=== PATIENT | male | born 1970 | race Caucasian/White ===

== ENCOUNTER 2022-07-26 15:07 | Inpatient (IN) | payer OTHER ==
[~2022-07-26] VITALS: Ht 182.9 cm; Wt 136.5 kg
--- NOTE | 2022-07-26 16:29 | NUR ---
DR BECKETT AT BEDSIDE FOR EVAL.
[2022-07-26] MEDS ORDERED: CEFEPIME 1 GM in IV D5W 50 ML IV ONE (16:30)
[2022-07-26] MEDS ORDERED: VANCOMYCIN 1 GM in IV D5W 250 ML IV ONE (16:30)
--- NOTE | 2022-07-26 16:30 | NUR ---
BIB "BEST FRIEND" FROM [facility]. C/O LEFT FOOT PAIN X 1 WEEK, Wound noted all over the both legs, moist with foul smell coming out from the wound.
--- NOTE | 2022-07-26 16:50 | NUR ---
IV LINE STARTED BLOOD/BLOOD CULTURE DRAWN AND SENT TO LAB.
[2022-07-26 17:15] LABS: BASOPHILS # (AUTO) 0.1 K/uL (0.0-0.2); BASOPHILS % (AUTO) 0.7 % (0.0-2.0); EOSINOPHILS % (AUTO) 1.2 % (0.0-6.0); HEMATOCRIT 37 % (39-51); HEMOGLOBIN 11.3 g/dL (13.5-17.5); LYMPHOCYTES # (AUTO) 2.1 K/uL (0.8-4.8); LYMPHOCYTES % (AUTO) 10.8 % (20.0-44.0); MEAN CORPUSCULAR HGB CONC 31 g/dl (31.0-36.0); MEAN CORPUSCULAR VOLUME 84 fL (80-96); MONOCYTES # (AUTO) 1.6 K/uL (0.1-1.30); NEUTROPHILS # (AUTO) 15.5 K/uL (1.8-8.9); NEUTROPHILS % (AUTO) 79.3 % (43.0-81.0); PLATELET COUNT (AUTO) 417 K/uL (150-450); RED BLOOD CELL COUNT(AUTO) 4.35 MIL/uL (4.5-6.0); WHITE BLOOD COUNT (AUTO) 19.6 K/uL (4.3-11.0)
--- NOTE | 2022-07-26 17:47 | NUR ---
[facility] . THEY FAXED PERTINENT PAPER WORK FOR THE PT. PLACED ON PT CHART.
[2022-07-26 18:16] LABS: CALCIUM, SERUM 8.6 mg/dL (8.5-10.1); CARBON DIOXIDE 30 mmol/L (21-32); CHLORIDE 102 mmol/L (98-107); CREATININE 1.6 mg/dL (0.6-1.3); GLUCOSE 125 mg/dL (74-106); POTASSIUM 4.4 mmol/L (3.5-5.1); SODIUM SERUM 137 mmol/L (136-145); UREA NITROGEN, BLOOD 32 mg/dL (7-18)
--- NOTE | 2022-07-26 18:19 | NUR ---
COVID SWAB COLLECTED AND SENT TO LAB.
[2022-07-26 18:26] LABS: ALANINE AMINOTRANSFERASE 24 U/L (12-78); ALBUMIN 1.8 g/dL (3.4-5.0); ALKALINE PHOSPHATASE 165 U/L (46-116); ASPARTATE AMINOTRANSFERASE 26 U/L (15-37); BILIRUBIN,DIRECT 0.3 mg/dL (0.0-0.2); BILIRUBIN,TOTAL 0.4 mg/dL (0.2-1.0); TOTAL PROTEIN, SERUM 7.3 g/dL (6.4-8.2)
[2022-07-26] MEDS ORDERED: HYDROCODONE/APAP 5/325MG TABLET ONE (18:43)
[2022-07-26] MEDS ORDERED: INSU100V7 SQ (18:59)
[2022-07-26] MEDS ORDERED: BENA10TA74 PO (18:59)
[2022-07-26] MEDS ORDERED: SENN-261 PO (18:59)
[2022-07-26] MEDS ORDERED: METF-440 PO (18:59)
[2022-07-26] MEDS ORDERED: INSU100V36 SQ (18:59)
[2022-07-26] MEDS ORDERED: ATOR40TA PO (18:59)
[2022-07-26] MEDS ORDERED: DIVA-78 PO (18:59)
[2022-07-26] MEDS ORDERED: GABA-532 PO (18:59)
[2022-07-26] MEDS ORDERED: DULO30CA52 PO (18:59)
[2022-07-26] MEDS ORDERED: POLY17PO4 PO (18:59)
[2022-07-26] MEDS ORDERED: BISA5TAB10 PO (18:59)
[2022-07-26] MEDS ORDERED: DIVA-76 PO (18:59)
[2022-07-26] MEDS ORDERED: QUET25TA PO (18:59)
[2022-07-26] MEDS ORDERED: ACET-2605 PO (18:59)
[2022-07-26] MEDS ORDERED: LACO100T2 PO (18:59)
[2022-07-26] MEDS ORDERED: ALBU8.5H8 IH (18:59)
[2022-07-26] MEDS ORDERED: HYDROCODONE/APAP 5/325MG TABLET PO ONE (19:00)
--- NOTE | 2022-07-26 19:20 | NUR ---
Pt refused for oxygen via nasal cannula. Oxygen sat: 87-91%
--- NOTE | 2022-07-26 20:02 | NUR ---
URINE SPECIMEN SENT TO LAB
--- NOTE | 2022-07-26 20:14 | NUR ---
PATIENT IS AAOX4. ABLE TO MAKE NEEDS KNOWN. RECIEVED WITH IV MONIE G20 ON RIGHT AC. PATIENT WITH IFC ATTACHED TO UROBAG. WITH BILATERAL INFECTED LOWER LEG. PATIENT IS A BIT PALE AND SATS WITHIN 87-91%. ABLE TO CONVINCE PATIENT THAT WE WILL DO NASAL CANNULA AT 2LPM TO HELP HIM WITH HIS OXYGEN LEVEL NEEDED ONLY. PATIENT AGREED.
--- NOTE | 2022-07-26 20:26 | NUR ---
REPORT GIVEN TO SANDIE HERNANDEZ
--- NOTE | 2022-07-26 20:30 | NUR ---
PATIENT BEING TRANSFERRED TO [facility]
[2022-07-26 20:38] LABS: BILIRUBIN,URINE NEGATIVE (NEGATIVE); COLOR,URINE YELLOW (YELLOW); LEUKOCYTE ESTERASE ,URINE 3+ (NEGATIVE); NITRITE, URINE POSITIVE (NEGATIVE); PROTEIN,URINE 2+ mg/dl (NEGATIVE); UGLUCOSE NEGATIVE (NEGATIVE); UROBILINOGEN,URINE 0.2 EU/dL (0.2)
--- NOTE | 2022-07-26 20:50 | NUR ---
ADMISSION NOTE Patient arrived via gurney accompanied by EMT @2039. AOx4, able to make needs known. On NC 3LPM and tolerating well. Patient is refusing nasal cannula because "90% is my normal." Asked patient why he does not want oxygen and he said "it is uncomfortable." Provided patient with further education but he still refused. No SOB while resting but patient is unable to tolerate laying flat for long periods of time. No s/sx of respiratory distress noted. IV access in RAC #18G. IV is intact, patent, and flushing well. Wound pictures taken and basic wound care done. Safety precautions in place: bed in lowest, locked position, siderails upX2, and brake on. Table and call light within reach. All needs met at this time.
[2022-07-26 21:00] VITALS: BP 104/58
[2022-07-26] MEDS ORDERED: ZOLPIDEM TARTRATE 5 MG TABLET PO PRN (21:00)
[2022-07-26] MEDS ORDERED: ACETAMINOPHEN 325 MG TABLET PO PRN (21:00)
[2022-07-26] MEDS ORDERED: ONDANSETRON HCL/PF 4 MG/2 ML VIAL IVP PRN (21:00)
[2022-07-26] MEDS ORDERED: Z GUARD REMEDY 4 OZ OINT TP PRN (21:00)
[2022-07-26] MEDS ORDERED: MAG HYDROX/AL HYDROX/SIMETH 30 ML UDC PO PRN (21:00)
[2022-07-26] MEDS ORDERED: MAGNESIUM HYDROXIDE 30 ML UDC PO PRN (21:00)
[2022-07-26] MEDS ORDERED: HYDROCODONE/APAP 10/325MG TABLET PO PRN (21:00)
[2022-07-26] MEDS ORDERED: DEXTROSE 50%-WATER 50 ML DISP.SYRIN IV PRN (21:00)
[2022-07-26 21:07] LABS: BACTERIA,URINE 3+ /HPF (None Seen); RBC,URINE 21-50 /HPF (0-2); WBC,URINE 51-80 /HPF (0-3)
[2022-07-26 21:08] LABS: SQUAMOUS EPITHELIAL CELL,UR 0-2 /HPF (None Seen); URIC ACID CRYSTALS,URINE Few /HPF (None Seen)
[2022-07-26] MEDS ORDERED: VANCOMYCIN 1 GM in IV D5W 250ml IV ONE (21:30)
[2022-07-26] MEDS ORDERED: VANCOMYCIN 1 GM VIAL ONE (21:58)
[2022-07-26] MEDS: BLOOD SUGAR DIAGNOSTIC 1 EACH STRIP VI SCH (22:33)
[2022-07-26] MEDS: *INSULIN REGULAR(HUMULIN R)HUM 100 UNIT/ML VIAL SQ PRN (22:34)
[2022-07-27] MEDS ORDERED: BISACODYL (5 MG) 5 MG TABLET.DR PO PRN (03:00)
[2022-07-27] MEDS ORDERED: ACETAMINOPHEN ES 500 MG TABLET PO PRN (03:00)
[2022-07-27] MEDS ORDERED: ALBUTEROL SULFATE 8 GM HFA.AER.AD IH PRN (03:00)
[2022-07-27] MEDS ORDERED: ALBUTEROL FS 2.5 MG/3 ML VIAL.NEB NEB PRN (03:30)
[2022-07-27] MEDS ORDERED: CEFEPIME 1 GM VIAL ONE (04:29)
[2022-07-27] MEDS: CEFEPIME 2 GM in IV D5W 100 ML IV SCH ×3 (04:42→20:14)
[2022-07-27 05:44] LABS: BASOPHILS # (AUTO) 0.1 K/uL (0.0-0.2); BASOPHILS % (AUTO) 0.4 % (0.0-2.0); EOSINOPHILS % (AUTO) 1.5 % (0.0-6.0); HEMATOCRIT 36 % (39-51); HEMOGLOBIN 11.1 g/dL (13.5-17.5); LYMPHOCYTES # (AUTO) 1.8 K/uL (0.8-4.8); LYMPHOCYTES % (AUTO) 9.7 % (20.0-44.0); MEAN CORPUSCULAR HGB CONC 31 g/dl (31.0-36.0); MEAN CORPUSCULAR VOLUME 84 fL (80-96); MONOCYTES # (AUTO) 1.5 K/uL (0.1-1.30); MONOCYTES % (AUTO) 8.1 % (2.0-12.0); NEUTROPHILS # (AUTO) 15.2 K/uL (1.8-8.9); NEUTROPHILS % (AUTO) 80.3 % (43.0-81.0); PLATELET COUNT (AUTO) 430 K/uL (150-450); RED BLOOD CELL COUNT(AUTO) 4.27 MIL/uL (4.5-6.0)
[2022-07-27 06:00] LABS: CALCIUM, SERUM 8.4 mg/dL (8.5-10.1); CREATININE 1.5 mg/dL (0.6-1.3); MAGNESIUM 1.8 mg/dL (1.8-2.4); PHOSPHORUS 4.2 mg/dL (2.5-4.9); POTASSIUM 4.6 mmol/L (3.5-5.1)
[2022-07-27] MEDS: BLOOD SUGAR DIAGNOSTIC 1 EACH STRIP VI SCH ×4 (06:30→21:30)
[2022-07-27] MEDS: INSULIN REGULAR, HUMAN 100 UNIT/ML 3 ML VIAL SQ PRN (06:31)
--- NOTE | 2022-07-27 06:46 | NUR ---
RN Closing Note Pt in bed, asleep, awakens to verbal stimuli. AOx4, able to make needs known. On NC 3LPM and tolerating well. No SOB while resting but patient is unable to tolerate laying flat for long periods of time. No s/sx of respiratory distress noted. IV access in RAC #18G. IV is intact, patent, and flushing well. Wound pictures taken and basic wound care done. All orders carried out. All needs met. Pt kept clean and dry. Safety precautions in place: bed in lowest, locked position, siderails upX2, and brake on. Table and call light within reach. Will endorse to oncoming shift for CRISTAL.
--- NOTE | 2022-07-27 07:00 | NUR ---
RN OPENING NOTE Pt in bed, awake, AOx4, able to make needs known. On NC 3LPM and tolerating well. No SOB while resting but patient is unable to tolerate laying flat for long periods of time. No s/sx of respiratory distress noted. IV access in RAC #18G. IV is intact, patent, and flushing well. bed in lowest, locked position, side rails upX2, and brake on. Table and call light within reach. Will continue to monitor the patient.
[2022-07-27] MEDS: DULOXETINE HCL 30 MG CAPSULE.DR PO SCH (08:41)
[2022-07-27] MEDS: DIVALPROEX SODIUM 250 MG TABLET.DR PO SCH ×2 (08:41→11:52)
[2022-07-27 08:42] VITALS: BP 114/66
[2022-07-27] MEDS: BENAZEPRIL HCL 10 MG TABLET PO SCH (08:42)
[2022-07-27] MEDS: SENNOSIDES 8.6 MG TABLET PO SCH ×2 (09:29→18:42)
[2022-07-27] MEDS: POLYETHYLENE GLYCOL 3350 17 GM POWD.PACK PO SCH ×2 (09:29→17:00)
[2022-07-27] MEDS: LACOSAMIDE 50 MG TABLET PO SCH ×2 (09:31→21:11)
[2022-07-27] MEDS: QUETIAPINE FUMARATE 25 MG TABLET PO SCH ×2 (09:31→21:10)
[2022-07-27] MEDS: VANCOMYCIN 1 GM in IV D5W 250ml IV SCH ×2 (09:43→21:12)
--- NOTE | 2022-07-27 10:54 | NUR ---
WOUND CARE CONSULT: PT PRESENTS WITH RT BUTTOCK STAGE 3 PRESSURE ULCER WHICH EXTENDS TO RT POSTERIOR THIGH, SACRAL SCARRING WITH INTACT DEEP TISSUE INJURY, WEEPING EDEMA WITH REDNESS TO LOWER LEGS, RT HEEL DRY WOUND AND LEFT LATERAL FOOT NECROTIC WOUND, ALL PRESENT ON ADMISSION. DR RHONDA BOUDREAUX CALLED FOR SURGICAL CONSULT FOR SACRAL AND BUTTOCKS WOUNDS. DR ANGEL CALLED FOR LOWER EXTREMITY WOUNDS. DISCUSSED SKIN PROTECTION AND WOUND CARE WITH NURSING STAFF. [facility] AIR BED ORDERED. IN AGREEMENT WITH PLAN OF CARE. Addendum: 07/27/22 at 1100 by PERRI ARCHIBALD WNDNU Amended: Links added.
--- NOTE | 2022-07-27 11:02 | NUR ---
PATIENT'S SPO2 LEVEL DROPS TO 84, OXYGEN MASK IS IMMEDIATELY APPLIED ON 8L REPLACING NC 3L. SPO2 IMPROVED TO 96. RT HAS SEEN THE PATIENT WELL. CHARGE NURSE AWARE.
[2022-07-27] MEDS: DAKINS QUARTER STRENGTH (0.125%) 480 ML BOTTLE TOP SCH ×4 (12:55→18:32)
[2022-07-27] MEDS: THERAHONEY GEL 1.5 OZ TUBE TP SCH ×3 (12:55→18:32)
--- NOTE | 2022-07-27 12:56 | NUR ---
PATIENT REFUSED CLEANING OF WOUND WELL APPLICATION OF THERAHONEY GEL TO THE WOUND. HIS FRIEND CRISTO ON BEDSIDE AWARE OF THE REFUSAL. RN SUGGESTED TO RETURN AFTER AN HOUR
[2022-07-27 16:00] VITALS: BP 100/60
--- NOTE | 2022-07-27 17:35 | NUR ---
PATIENT FINALLY AGREES ON CLEANING OF SACRAL WOUND WELL APPLICATION OF THERAHONEY GEL
--- NOTE | 2022-07-27 19:15 | NUR ---
RN Closing Note Pt in bed, asleep, awakens to verbal stimuli. AOx4, able to make needs known. On NC 6LPM and tolerating well. No SOB while resting but patient is unable to tolerate laying flat for long periods of time. No s/sx of respiratory distress noted. IV access in RAC #18G. IV is intact, patent, and flushing well. basic wound care done today as indicated. All orders carried out. Patient signed all consent forms needed for his surgery, schedule is yet to be determined from Surgery dept. All needs met. Pt kept clean and dry. Safety precautions in place: bed in lowest, locked position, siderails upX2, and brake on. Table and call light within reach. Will endorse to oncoming mold shifter for RN for CRISTAL.
--- NOTE | 2022-07-27 19:30 | NUR ---
MS RN OPENING NOTES - RECEIVED PATIENT LAYING IN BED AWAKE. A/O X3, ANSWERS "I DON'T KNOW" TO ALL QUESTIONS. SOB NOTED, CURRENTLY ON O2 AT 6LPM VIA NASAL CANULA. HAS RIGHT ANTECUBITAL IV ACCESS #18G WITH NS RUNNING AT 5 ML/HR. NO S/S OF INFILTRATION NOTED. HAS INDWELLING MICHELLE CATHETER DRAINING CLEAR YELLOW URINE TO BAG BY GRAVITY. SAFETY PRECAUTIONS IN PLACE: BED LOCKED AND IN LOW POSITION, SIDE RAILS UP X2, CALL LIGHT WITHIN REACH. WILL CONTINUE PLAN OF CARE.
[2022-07-27 20:00] VITALS: BP 95/58
[2022-07-27] MEDS: ATORVASTATIN 40 MG TABLET PO SCH (21:11)
[2022-07-27] MEDS: GABAPENTIN 100 MG CAPSULE PO SCH (21:11)
[2022-07-27] MEDS: *INSULIN REGULAR(HUMULIN R)HUM 100 UNIT/ML VIAL SQ PRN (21:31)
--- NOTE | 2022-07-27 22:00 | NUR ---
TRANSFERRED PATIENT TO [facility] BED BY 4 PEOPLE.
[2022-07-28] VITALS (41 sets, daily range): BP systolic 87–149; BP diastolic 42–88
--- NOTE | 2022-07-28 00:27 | NUR ---
UNABLE TO RECHECK BP, PATIENT IS REFUSING CARE. SPO2 90% ON 4LPM VIA NASAL CANULA. INCREASED TO 5LPM.
--- NOTE | 2022-07-28 03:54 | NUR ---
PATIENT ALLOWED ME TO TAKE HIS V/S AFTER EXPLAINING THAT I NEED TO GET IT FIRST BEFORE GIVING HIM HIS PAIN MED. PATIENT IS CRYING OFTEN AND VERBALIZED THAT HE IS SORE. GAVE PRN NORCO 10-325 MG, TOLERATED WELL. WILL CONTINUE TO MONITOR.
[2022-07-28] MEDS: CEFEPIME 2 GM in IV D5W 100 ML IV SCH ×3 (04:19→21:06)
[2022-07-28 05:50] LABS: BASOPHILS # (AUTO) 0.1 K/uL (0.0-0.2); BASOPHILS % (AUTO) 0.3 % (0.0-2.0); EOSINOPHILS % (AUTO) 2.4 % (0.0-6.0); HEMATOCRIT 31 % (39-51); HEMOGLOBIN 9.5 g/dL (13.5-17.5); LYMPHOCYTES # (AUTO) 1.9 K/uL (0.8-4.8); LYMPHOCYTES % (AUTO) 9.3 % (20.0-44.0); MEAN CORPUSCULAR HGB CONC 31 g/dl (31.0-36.0); MEAN CORPUSCULAR VOLUME 86 fL (80-96); MONOCYTES # (AUTO) 1.9 K/uL (0.1-1.30); MONOCYTES % (AUTO) 9.5 % (2.0-12.0); NEUTROPHILS # (AUTO) 15.9 K/uL (1.8-8.9); NEUTROPHILS % (AUTO) 78.5 % (43.0-81.0); PLATELET COUNT (AUTO) 368 K/uL (150-450); RED BLOOD CELL COUNT(AUTO) 3.63 MIL/uL (4.5-6.0); WHITE BLOOD COUNT (AUTO) 20.3 K/uL (4.3-11.0)
[2022-07-28 06:01] LABS: CREATININE 1.8 mg/dL (0.6-1.3); MAGNESIUM 1.9 mg/dL (1.8-2.4); PHOSPHORUS 5.4 mg/dL (2.5-4.9); POTASSIUM 4.7 mmol/L (3.5-5.1)
[2022-07-28] MEDS ORDERED: SEVOFLURANE 250 ML BOTTLE IH ONE (06:34)
[2022-07-28] MEDS ORDERED: BUPIVACAINE 0.5 % PF 150 MG/30 ML VIAL ONE (06:35)
[2022-07-28] MEDS ORDERED: LIDOCAINE 1% INJ 50 ML MDV IJ ONE (06:35)
--- NOTE | 2022-07-28 06:37 | NUR ---
TRANSFERRED TO OR IN STABLE CONDITION.
[2022-07-28] MEDS: INSULIN REGULAR, HUMAN 100 UNIT/ML 3 ML VIAL SQ PRN (06:38)
[2022-07-28] MEDS: BLOOD SUGAR DIAGNOSTIC 1 EACH STRIP VI SCH ×4 (06:38→22:48)
--- NOTE | 2022-07-28 06:46 | NUR ---
MS RN CLOSING NOTES - PATIENT TAKEN TO OR. NO SOB OR NOTED, ON O2 AT 5LPM VIA NASAL CANULA. NO S/S OF PAIN OR DISCOMFORT. AFEBRILE. RIGHT ANTECUBITAL IV ACCESS INTACT, PATENT AND FLUSHING. MINIMAL CLEAR YELLOW URINE OUTPUT NOTED. ALL DUE MEDS GIVEN AND NEEDS ATTENDED. SAFETY PRECAUTIONS MAINTAINED. WILL ENDORSE TO NEXT SHIFT FOR CRISTAL.
[2022-07-28] MEDS ORDERED: FENTANYL PF 100MCG/2ML AMPUL ONE (07:10)
[2022-07-28] MEDS ORDERED: CELLULOSE,OXIDIZED 1 EA PACK MC ONE (07:35)
[2022-07-28] MEDS: DIVALPROEX SODIUM 250 MG TABLET.DR PO SCH ×2 (08:00→12:00)
[2022-07-28] MEDS ORDERED: ROCURONIUM BROMIDE 50 MG/5 ML ONE (08:00)
--- NOTE | 2022-07-28 08:18 | NUR ---
RT PATIENT RECEIVED ORALLY INTUBATED FROM SURGERY. PLACED ON [facility] VENT WITH ORDERED SETTINGS PER DR HUBER. ETT SECURED VIA ANCHOR FAST. SX'D AND AIRWAY PATENT. PATIENT SEDATED AND APPEARS COMFORTABLE. AMBU BAG AT HOB Addendum: 07/28/22 at 1649 by KALI CASTELLON RT Amended: Links added.
--- NOTE | 2022-07-28 08:30 | NUR ---
WATER MAIN INSPECTOR PT RECEIVED FROM SURGERY BY BED. PT S/P DEBRIDEMENT. INTUBATED AND NOT ABLE TO WEAN OFF VENT. PT HYPOTENSIVE. NS BOLUS STARTED IN SURGERY INFUSING. PACU AND ANESTHESIA HERE WITH PT FOR RECOVERY PERIOD.
[2022-07-28] MEDS: BENAZEPRIL HCL 10 MG TABLET PO SCH (09:00)
[2022-07-28] MEDS: SENNOSIDES 8.6 MG TABLET PO SCH ×2 (09:00→19:32)
[2022-07-28] MEDS ORDERED: IV NS 0.9% 500 ML BAG IV ONE (09:00)
[2022-07-28] MEDS: LACOSAMIDE 50 MG TABLET PO SCH ×2 (09:00→21:07)
[2022-07-28] MEDS: QUETIAPINE FUMARATE 25 MG TABLET PO SCH ×2 (09:00→21:07)
[2022-07-28] MEDS: IPRATROPIUM NEB FS 0.5 MG/2.5 ML AMPUL.NEB NEB SCH ×5 (09:00→23:02)
[2022-07-28] MEDS: POLYETHYLENE GLYCOL 3350 17 GM POWD.PACK PO SCH ×2 (09:00→19:33)
[2022-07-28] MEDS: DULOXETINE HCL 30 MG CAPSULE.DR PO SCH (09:00)
[2022-07-28] MEDS: NOREPINEPHRINE 8 MG in IV NS 0.9% 242 ML IV PRN ×2 (10:00→10:02)
[2022-07-28 10:32] LABS: ABG OXYGEN SATURATION 89.2 % (92.0-98.5); ABG PCO2 62.2 mmHg (35.0-45.0); ABG PH 7.271 (7.350-7.450); ABG PO2 56.2 mmHg (75.0-100.0); AaDO2 448.9 mmHg; COHb 1.1 % (0.5-1.5); MetHb 0.1 % (0.0-1.5); O2Hb 88.1 % (94.0-97.0); SITE, ABG Left Radial; VENT MODE, BG AC 16 500 80% +5
[2022-07-28] MEDS: DAKINS QUARTER STRENGTH (0.125%) 480 ML BOTTLE TOP SCH ×3 (10:33→16:46)
[2022-07-28] MEDS: VANCOMYCIN 1 GM in IV D5W 250ml IV SCH (10:33)
[2022-07-28] MEDS: PROPOFOL 100 ML IV PRN ×3 (12:10→21:46)
--- NOTE | 2022-07-28 12:26 | NUR ---
rn notes BS-109 MG/DL, PATIENT INTUBATED NO ACUTE RESPIRATORY DISTRESS, ASSIST TURN AND REPOSTION, ELEVATED EFFECTED LEG. WILL FOLLOW UP.
[2022-07-28] MEDS ORDERED: BUMETANIDE INJ 0.25 MG/ML VIAL IV ONE (18:00)
--- NOTE | 2022-07-28 18:30 | NUR ---
rn notes inserted NGT, due medication administered, also patient get inserted picc line DU intact, bs-90mg/dl. pm care done, assist turn and reposition q 2 hr. patient sedated Diprivan 25mcg/kg/min. keep hob elevated. urine output 50ml, flashed with ns. endorsed oncoming nurse abdon.
--- NOTE | 2022-07-28 20:00 | NUR ---
RN NOTE RECEIVED PT ORALLY INTUBATED, CURRENT [facility] VENT SETTINGS [place]. PT APPEARS TO BE COMFORTABLE. PT IS SEDATED, CURRENTLY RECEIVING DIPRIVAN 25MCG/KG/MIN. ON CADEN PICC LINE. VSS. PT NOTED WITH NGT ON L NARE, SECURED, IN PLACED, AND PATENT. FC IN PLACED, PATENT AND SECURED, DRAINING MIN DARK YELLOW URINE. BILATERAL SOFT WRIST RESTRAINTS IN PLACED. HOB ELEVATED. SAFETY PRECAUTIONS IMPLEMENTED. WILL CONT POC.
[2022-07-28] MEDS: ATORVASTATIN 40 MG TABLET PO SCH (21:07)
[2022-07-28] MEDS: GABAPENTIN 100 MG CAPSULE PO SCH (21:11)
[2022-07-28] MEDS: *INSULIN REGULAR(HUMULIN R)HUM 100 UNIT/ML VIAL SQ PRN (22:49)
[2022-07-29] VITALS (62 sets, daily range): BP systolic 96–127; BP diastolic 57–78
[2022-07-29] MEDS: PROPOFOL 100 ML IV PRN ×5 (01:54→22:39)
[2022-07-29] MEDS: IPRATROPIUM NEB FS 0.5 MG/2.5 ML AMPUL.NEB NEB SCH ×6 (03:42→23:14)
--- NOTE | 2022-07-29 03:42 | NUR ---
TITRATE FIO2 TO 80%
[2022-07-29 04:11] LABS: BASOPHILS # (AUTO) 0.1 K/uL (0.0-0.2); BASOPHILS % (AUTO) 0.5 % (0.0-2.0); EOSINOPHILS % (AUTO) 2.2 % (0.0-6.0); HEMATOCRIT 31 % (39-51); HEMOGLOBIN 9.5 g/dL (13.5-17.5); MEAN CORPUSCULAR HGB CONC 31 g/dl (31.0-36.0); MEAN CORPUSCULAR VOLUME 83 fL (80-96); MONOCYTES # (AUTO) 1.5 K/uL (0.1-1.30); MONOCYTES % (AUTO) 8.1 % (2.0-12.0); NEUTROPHILS # (AUTO) 14.5 K/uL (1.8-8.9); NEUTROPHILS % (AUTO) 78.2 % (43.0-81.0); PLATELET COUNT (AUTO) 370 K/uL (150-450); RED BLOOD CELL COUNT(AUTO) 3.66 MIL/uL (4.5-6.0); WHITE BLOOD COUNT (AUTO) 18.5 K/uL (4.3-11.0)
[2022-07-29 04:38] LABS: CREATININE 1.8 mg/dL (0.6-1.3); MAGNESIUM 1.8 mg/dL (1.8-2.4); PHOSPHORUS 4.4 mg/dL (2.5-4.9); POTASSIUM 4.3 mmol/L (3.5-5.1)
[2022-07-29] MEDS: CEFEPIME 2 GM in IV D5W 100 ML IV SCH ×3 (05:03→22:37)
--- NOTE | 2022-07-29 05:45 | NUR ---
Titrate fio2 to 60% . No respiratory distress noted.
[2022-07-29] MEDS ORDERED: VANCOMYCIN 1.5 GM in IV D5W 500 ML IV SCH (06:00)
--- NOTE | 2022-07-29 06:59 | NUR ---
RN NOTE PT REMAINS IN STABLE CONDITION. NO SIGNIFICANT CHANGES NOTED. REMAINS ON DIPRIVAN DRIP 25MCG/KG/MIN, ORALLY INTUBATED, [facility] VENT SETTINGS [place]. NO ACUTE RESP. DISTRESS NOTED. VSS. ALL NEEDS ANTICIPATED. KEPT CLEAN, DRY AND COMFORTABLE AT ALL TIMES. WILL ENDORSE TO AM SHIFT
[2022-07-29] MEDS: BLOOD SUGAR DIAGNOSTIC 1 EACH STRIP VI SCH ×4 (07:28→22:21)
--- NOTE | 2022-07-29 08:00 | NUR ---
rn notes PATIENT SEDATED DIPRIVAN 25 MCG/KG/HR, NO ACUTE RESPIRATORY DISTRESS, TOLERATING SETTING WELL FIO2-60%, 02-97% BEDSIDE MONITOR, PATIENT HR-70 SR. NGT INTACT,AND CLAMPED, PATIENT OBESE, MICHELLE DRAINING MEAGHAN OUTPUT. DRESSING INTACT ON LEFT FOOT , RECHECKED BILATERAL WRIST RESTRAIN FOR CIRCULATION. ASSIST TURN AND REPOSTION Q 2 HR.
--- NOTE | 2022-07-29 08:10 | NUR ---
RN NOTED GET VERBAL ORDER FOR Dr HUBER STOP SEDATION AT THIS TIME WEANING FROM VENT. ORDER TAKEN AND CARRIED OUT.
[2022-07-29 08:59] LABS: ABG BASE EXCESS 3.4 mmol/L; ABG OXYGEN SATURATION 94.4 % (92.0-98.5); ABG PCO2 41.1 mmHg (35.0-45.0); ABG PH 7.447 (7.350-7.450); ABG PO2 72.2 mmHg (75.0-100.0); AaDO2 310.4 mmHg; COHb 0.4 % (0.5-1.5); MetHb 0.2 % (0.0-1.5); O2Hb 93.8 % (94.0-97.0); PEEP,BG 5 cm H2O; SITE, ABG Right Radial; VT, ABG 550 mL
--- NOTE | 2022-07-29 09:00 | NUR ---
RN NOTES ABG DONE VIA RT.
--- NOTE | 2022-07-29 09:15 | NUR ---
RN NOTES PER ABG RESULT GET ORDER VIA Dr HUBER VENT CHANGE INCREASE PEEP 8, AND RESTART SEDATION WHEN PATIENT UNABLE TO TOLERATED SETTINGS. ORDER TAKEN AND CARRIED OUT RT AWARE OF.
[2022-07-29] MEDS: LACOSAMIDE 50 MG TABLET PO SCH ×2 (10:49→21:16)
[2022-07-29] MEDS: DULOXETINE HCL 30 MG CAPSULE.DR PO SCH (10:49)
[2022-07-29] MEDS: POLYETHYLENE GLYCOL 3350 17 GM POWD.PACK PO SCH ×2 (10:49→18:35)
[2022-07-29] MEDS: SENNOSIDES 8.6 MG TABLET PO SCH ×2 (10:49→18:35)
[2022-07-29] MEDS: DAKINS QUARTER STRENGTH (0.125%) 480 ML BOTTLE TOP SCH ×3 (10:50→17:42)
[2022-07-29] MEDS: THERAHONEY GEL 1.5 OZ TUBE TP SCH (10:51)
[2022-07-29] MEDS: BENAZEPRIL HCL 10 MG TABLET PO SCH (11:06)
[2022-07-29] MEDS: QUETIAPINE FUMARATE 25 MG TABLET PO SCH ×2 (11:06→21:16)
[2022-07-29] MEDS: DIVALPROEX SODIUM 125 MG CAP.SPRINK PO SCH ×2 (11:23→18:35)
--- NOTE | 2022-07-29 12:00 | NUR ---
rn notes resumed sedation at this time Diprivan started 10mcg/kg/min, bs-77mg/dl, seen patient via hypertrichologist Dr Maya, and garbage truck dispatcher Dr Michaud, urine output is 500 ml at his time draining via gravity. assist turn and reposition. friend next to the bed. will follow up.
[2022-07-29] MEDS ORDERED: BUMETANIDE INJ 2 MG in IV NS 0.9% 32 ML IV ONE (13:00)
[2022-07-29] MEDS: IV NS 0.9% 250 ML IV PRN (15:30)
--- NOTE | 2022-07-29 18:30 | NUR ---
RN NOTES PM CARE DONEM, SUCTION MOUTH CARE DONE, DUE MEDICATION ADMINISTERED VIA NGT INTACT. PATIENT SEDATED DIPRIVAN 30MCG/KG/MIN. ASSIST TURN AND REPOSTION Q 2 HR.URINE OUTPUT WAS 2200. ENDORSED ONCOMING NURSE CRISTAL.
--- NOTE | 2022-07-29 19:00 | NUR ---
RN NOTE RECEIVED PT ORALLY INTUBATED, CURRENT [facility] VENT SETTINGS [place], AC22 [id number]%. PT APPEARS TO BE COMFORTABLE. PT IS SEDATED, CURRENTLY RECEIVING DIPRIVAN 30MCG/KG/MIN. ON CADEN PICC LINE. VSS. PT NOTED WITH NGT ON L NARE, SECURED, IN PLACED, AND PATENT. FC IN PLACED, PATENT AND SECURED, DRAINING CLEAR YELLOW URINE. BILATERAL SOFT WRIST RESTRAINTS IN PLACED. HOB ELEVATED. SAFETY PRECAUTIONS IMPLEMENTED. WILL CONT POC.
--- NOTE | 2022-07-29 19:55 | NUR ---
UNABLE TO SCAN BREATHING TX DUE TO DAY SHIFT NURSE ACCIDENTALLY DOCUMENTED TX WAS GIVEN. CHARGE NURSE IS AWARE. BREATHING TX GIVEN AT THIS TIME.
[2022-07-29] MEDS: VANCOMYCIN 1.5 GM in IV D5W 500 ML IV SCH (20:16)
[2022-07-29] MEDS: ATORVASTATIN 40 MG TABLET PO SCH (21:16)
[2022-07-29] MEDS: GABAPENTIN 100 MG CAPSULE PO SCH (21:16)
[2022-07-29] MEDS: *INSULIN REGULAR(HUMULIN R)HUM 100 UNIT/ML VIAL SQ PRN (22:22)
[2022-07-30] VITALS (48 sets, daily range): BP systolic 90–146; BP diastolic 57–82
[2022-07-30] MEDS: PROPOFOL 100 ML IV PRN ×2 (02:52→06:30)
[2022-07-30] MEDS: IPRATROPIUM NEB FS 0.5 MG/2.5 ML AMPUL.NEB NEB SCH ×6 (03:33→23:23)
[2022-07-30 03:56] LABS: BASOPHILS # (AUTO) 0.1 K/uL (0.0-0.2); BASOPHILS % (AUTO) 0.7 % (0.0-2.0); HEMATOCRIT 32 % (39-51); MEAN CORPUSCULAR HGB CONC 32 g/dl (31.0-36.0); MEAN CORPUSCULAR VOLUME 83 fL (80-96); MONOCYTES # (AUTO) 1.1 K/uL (0.1-1.30); MONOCYTES % (AUTO) 6.6 % (2.0-12.0); NEUTROPHILS # (AUTO) 12.9 K/uL (1.8-8.9); NEUTROPHILS % (AUTO) 76.7 % (43.0-81.0); PLATELET COUNT (AUTO) 414 K/uL (150-450); RED BLOOD CELL COUNT(AUTO) 3.84 MIL/uL (4.5-6.0); WHITE BLOOD COUNT (AUTO) 16.8 K/uL (4.3-11.0)
[2022-07-30 04:18] LABS: CREATININE 1.6 mg/dL (0.6-1.3); MAGNESIUM 1.7 mg/dL (1.8-2.4); PHOSPHORUS 3.6 mg/dL (2.5-4.9)
[2022-07-30] MEDS: CEFEPIME 2 GM in IV D5W 100 ML IV SCH ×3 (04:31→21:18)
--- NOTE | 2022-07-30 06:41 | NUR ---
RN NOTE PT REMAINS IN STABLE CONDITION. NO SIGNIFICANT CHANGES NOTED. REMAINS ON DIPRIVAN DRIP 30MCG/KG/MIN, ORALLY INTUBATED, ME[facility] VENT SETTINGS [place] AC22,TV550 PEEP8 [id number]%. NO ACUTE RESP. DISTRESS NOTED. VSS. ALL NEEDS ANTICIPATED. KEPT CLEAN, DRY AND COMFORTABLE AT ALL TIMES. TURN AND REPOS. Q2H/PRN. ASPIRATION PRECAUTION/.SAFETY MEASURES IMPLEMENTED. WILL ENDORSE TO AM SHIFT
--- NOTE | 2022-07-30 07:25 | NUR ---
RN note Received patient in bed, GCS E1VTM2. Intubated with size 7.5, marking at 27cm. ON AC PRVC mode, TV 550, FiO2 60% with PEEP 8, SpO2 99%, sedated by propofol at 30mcg/kg/min via right UA PICC. cardiac monitor technician showd SR HR 83/min. MAP>65mmHg. On restraints, bilateral hand circulation is good. Will continue monitoring and care.
[2022-07-30] MEDS: BLOOD SUGAR DIAGNOSTIC 1 EACH STRIP VI SCH ×4 (08:13→22:47)
--- NOTE | 2022-07-30 08:40 | NUR ---
RN Note For sedation vacation, propofol stopped at 08:10. Patient gradually wakes up at 08:35. Informed RT, who switched his ventilator from AC to SIMV mode with PS [id number] at 08:40. For ABG at 0940.
[2022-07-30] MEDS: DIVALPROEX SODIUM 125 MG CAP.SPRINK PO SCH ×2 (08:54→16:22)
[2022-07-30] MEDS: BENAZEPRIL HCL 10 MG TABLET PO SCH (08:54)
[2022-07-30] MEDS: DULOXETINE HCL 30 MG CAPSULE.DR PO SCH (08:55)
[2022-07-30] MEDS: LACOSAMIDE 50 MG TABLET PO SCH ×2 (08:55→21:18)
[2022-07-30] MEDS: POLYETHYLENE GLYCOL 3350 17 GM POWD.PACK PO SCH ×2 (08:55→16:22)
[2022-07-30] MEDS: SENNOSIDES 8.6 MG TABLET PO SCH ×2 (08:55→16:22)
[2022-07-30] MEDS: DAKINS QUARTER STRENGTH (0.125%) 480 ML BOTTLE TOP SCH ×2 (08:57→16:22)
[2022-07-30] MEDS: THERAHONEY GEL 1.5 OZ TUBE TP SCH (08:57)
[2022-07-30] MEDS: QUETIAPINE FUMARATE 25 MG TABLET PO SCH ×2 (08:57→21:18)
[2022-07-30] MEDS ORDERED: Magnesium 1GM/D5W 100ML PREMIX 100 ML IV SCH (09:00)
[2022-07-30] MEDS: IV NS 0.9% 250 ML IV PRN (09:41)
[2022-07-30 09:59] LABS: ABG BASE EXCESS 3.3 mmol/L; ABG OXYGEN SATURATION 96.1 % (92.0-98.5); ABG PCO2 40.1 mmHg (35.0-45.0); ABG PH 7.453 (7.350-7.450); ABG PO2 84.8 mmHg (75.0-100.0); AaDO2 226.6 mmHg; COHb 0.3 % (0.5-1.5); MetHb 0.4 % (0.0-1.5); O2Hb 95.4 % (94.0-97.0); SITE, ABG Left Radial; VENT MODE, BG SIMV 4 PS15 50% +5
--- NOTE | 2022-07-30 10:00 | NUR ---
RN note RT Cortes took the ABG 1 hour after switching to SIMV mode. result was sent to Dr. Munguia, doctor said to extubate if patient is awake and comfortable. Patient is awake upon calling his name and he looked comfortable. Will collaborate with RT for extubation.
--- NOTE | 2022-07-30 10:40 | NUR ---
RN note Right thoracentesis was done under aseptic technique by radiologist and driver/guide at bed side. 2.1L of straw colored pleural fluid was collected. SpO2 >95% all along. no respiratory distress was noted. Sent specimen to lab for cytology. Await CXR post procedure.
--- NOTE | 2022-07-30 11:21 | NUR ---
rt note patient extubated per md orders. no sob noted at this time. patient alert and awake on 4l nasal cannula
--- NOTE | 2022-07-30 15:40 | NUR ---
Urine for urinalysis was collected.
--- NOTE | 2022-07-30 17:18 | NUR ---
RN note Patient was coughing a lot of sputum after extubation, RR ~ 23/min. SpO2 >90% all along with 4L oxygen given via NC. impregnator operator showed SR HR 83/min. BP 97/65mmHg. As patient is too weak, not for swallowing evaluation today. Patient's GCS is now E4V5M6, bilateral pupils PERRLA 3mm. Will endorse PM nurse to continue monitoring and care.
[2022-07-30 18:58] LABS: BILIRUBIN,URINE NEGATIVE (NEGATIVE); COLOR,URINE YELLOW (YELLOW); LEUKOCYTE ESTERASE ,URINE TRACE (NEGATIVE); NITRITE, URINE NEGATIVE (NEGATIVE); PH,URINE 5.5 (5.0-8.0); PROTEIN,URINE 1+ mg/dl (NEGATIVE); UGLUCOSE NEGATIVE (NEGATIVE); UROBILINOGEN,URINE 0.2 EU/dL (0.2)
[2022-07-30 19:26] LABS: BACTERIA,URINE RARE /HPF (None Seen); FINE GRANULAR CASTS,URINE Few /LPF (None Seen); MUCUS,URINE Few /LPF (None Seen); SQUAMOUS EPITHELIAL CELL,UR 0-2 /HPF (None Seen); WBC,URINE 0-2 /HPF (0-3)
--- NOTE | 2022-07-30 20:00 | NUR ---
KICK PLATE INSTALLER RECEIVED REPORT FROM SANDIE FRAUSTO. ALERT AND ORIENTED X3. SLEEPY AT THE MOMENT. LABS AND ORDERS, CHART REVIEWED. ON 02 AT 4LPM VIA NASAL CANNULA, CURRENTLY RECEIVING BREATHING TX C/O RT, TOLERATING. 02 SAT 96%. S/P DEBRIDEMENT AT LEFT FOOT. SAFETY MEASURES MAINTAINED. WILL CONTINUE TO MONITOR.
[2022-07-30] MEDS: VANCOMYCIN 1.5 GM in IV D5W 500 ML IV SCH (20:23)
[2022-07-30] MEDS: ATORVASTATIN 40 MG TABLET PO SCH (21:18)
[2022-07-30] MEDS: GABAPENTIN 100 MG CAPSULE PO SCH (21:19)
[2022-07-31] VITALS (26 sets, daily range): BP systolic 98–144; BP diastolic 56–87
[2022-07-31] MEDS: IPRATROPIUM NEB FS 0.5 MG/2.5 ML AMPUL.NEB NEB SCH ×6 (03:20→23:41)
[2022-07-31] MEDS: CEFEPIME 2 GM in IV D5W 100 ML IV SCH ×3 (04:22→21:28)
[2022-07-31 04:56] LABS: BASOPHILS # (AUTO) 0.1 K/uL (0.0-0.2); BASOPHILS % (AUTO) 0.6 % (0.0-2.0); EOSINOPHILS % (AUTO) 3.6 % (0.0-6.0); HEMATOCRIT 32 % (39-51); HEMOGLOBIN 10.1 g/dL (13.5-17.5); LYMPHOCYTES # (AUTO) 1.8 K/uL (0.8-4.8); LYMPHOCYTES % (AUTO) 10.8 % (20.0-44.0); MEAN CORPUSCULAR HGB CONC 31 g/dl (31.0-36.0); MEAN CORPUSCULAR VOLUME 84 fL (80-96); MONOCYTES # (AUTO) 1.3 K/uL (0.1-1.30); MONOCYTES % (AUTO) 7.9 % (2.0-12.0); NEUTROPHILS # (AUTO) 12.8 K/uL (1.8-8.9); NEUTROPHILS % (AUTO) 77.1 % (43.0-81.0); PLATELET COUNT (AUTO) 373 K/uL (150-450); RED BLOOD CELL COUNT(AUTO) 3.84 MIL/uL (4.5-6.0); WHITE BLOOD COUNT (AUTO) 16.5 K/uL (4.3-11.0)
[2022-07-31 05:10] LABS: CREATININE 1.5 mg/dL (0.6-1.3); POTASSIUM 4.1 mmol/L (3.5-5.1)
[2022-07-31] MEDS: BLOOD SUGAR DIAGNOSTIC 1 EACH STRIP VI SCH ×4 (06:03→22:27)
--- NOTE | 2022-07-31 07:10 | NUR ---
RN note Received patient in bed. E3V5M6, patient does not have active complaint. classroom monitor showed SR HR 73/min. On 4L oxygen via NC, Spo2 92-94%, RR 18/min, no respiratory distress noted. Right upper arm PICC is dry and intact, with TKO running at 10mL/hr. Call mccormack is placed within reach. Bed is locked. Will continue monitoring and care.
[2022-07-31] MEDS: POLYETHYLENE GLYCOL 3350 17 GM POWD.PACK PO SCH ×2 (08:38→16:36)
[2022-07-31] MEDS: SENNOSIDES 8.6 MG TABLET PO SCH ×2 (08:38→16:36)
[2022-07-31] MEDS: DIVALPROEX SODIUM 125 MG CAP.SPRINK PO SCH ×2 (08:38→16:48)
[2022-07-31] MEDS: DULOXETINE HCL 30 MG CAPSULE.DR PO SCH (08:39)
[2022-07-31] MEDS: BENAZEPRIL HCL 10 MG TABLET PO SCH (08:40)
[2022-07-31] MEDS: LACOSAMIDE 50 MG TABLET PO SCH ×2 (08:41→21:28)
[2022-07-31] MEDS: QUETIAPINE FUMARATE 25 MG TABLET PO SCH ×2 (08:42→21:28)
[2022-07-31] MEDS: DAKINS QUARTER STRENGTH (0.125%) 480 ML BOTTLE TOP SCH ×2 (08:45→11:12)
[2022-07-31] MEDS: THERAHONEY GEL 1.5 OZ TUBE TP SCH (08:46)
[2022-07-31] MEDS: IV NS 0.9% 250 ML IV PRN (11:23)
[2022-07-31] MEDS: GENTAMICIN 0.1% OINT 15 GM TUBE TP SCH (12:10)
--- NOTE | 2022-07-31 15:32 | NUR ---
Decrease oxygen to 2L via NC, desaturated to 88%. Increased oxygen back to 3L via NC.
--- NOTE | 2022-07-31 18:11 | NUR ---
RN note Patient tolerated mechanical soft diet well. Small amount of thin fluid was given with a small cup. Noted occasional coughing but not choking. No choking was noted with food all along. Mouthcare was provided after meals. Will keep observation.
[2022-07-31] MEDS: VANCOMYCIN 1.5 GM in IV D5W 500 ML IV SCH (19:56)
[2022-07-31] MEDS: GABAPENTIN 100 MG CAPSULE PO SCH (21:28)
[2022-07-31] MEDS: ATORVASTATIN 40 MG TABLET PO SCH (21:28)
[2022-08-01] VITALS (22 sets, daily range): BP systolic 103–129; BP diastolic 52–77
[2022-08-01] MEDS: IPRATROPIUM NEB FS 0.5 MG/2.5 ML AMPUL.NEB NEB SCH ×5 (03:50→20:03)
[2022-08-01] MEDS: CEFEPIME 2 GM in IV D5W 100 ML IV SCH ×3 (04:49→21:29)
[2022-08-01 05:09] LABS: BASOPHILS # (AUTO) 0.1 K/uL (0.0-0.2); BASOPHILS % (AUTO) 0.4 % (0.0-2.0); EOSINOPHILS % (AUTO) 3.9 % (0.0-6.0); HEMATOCRIT 33 % (39-51); HEMOGLOBIN 10.5 g/dL (13.5-17.5); LYMPHOCYTES # (AUTO) 1.9 K/uL (0.8-4.8); LYMPHOCYTES % (AUTO) 11.2 % (20.0-44.0); MEAN CORPUSCULAR HGB CONC 32 g/dl (31.0-36.0); MEAN CORPUSCULAR VOLUME 84 fL (80-96); MONOCYTES # (AUTO) 1.4 K/uL (0.1-1.30); MONOCYTES % (AUTO) 8.4 % (2.0-12.0); NEUTROPHILS # (AUTO) 12.9 K/uL (1.8-8.9); NEUTROPHILS % (AUTO) 76.1 % (43.0-81.0); PLATELET COUNT (AUTO) 399 K/uL (150-450); RED BLOOD CELL COUNT(AUTO) 3.95 MIL/uL (4.5-6.0)
[2022-08-01 05:17] LABS: CREATININE 1.4 mg/dL (0.6-1.3); MAGNESIUM 1.9 mg/dL (1.8-2.4); PHOSPHORUS 3.2 mg/dL (2.5-4.9); POTASSIUM 4.1 mmol/L (3.5-5.1)
[2022-08-01] MEDS: BLOOD SUGAR DIAGNOSTIC 1 EACH STRIP VI SCH ×4 (05:56→21:31)
[2022-08-01] MEDS: IV NS 0.9% 250 ML IV PRN (05:57)
--- NOTE | 2022-08-01 07:23 | NUR ---
RN note Received patient in bed. E3V5M6, patient does not have active complaint. pvc monitor showed SR HR 76/min. BP 105/62mmhg. On 4L oxygen via NC, Spo2 93-95%, RR 19/min, no respiratory distress noted. Right upper arm PICC is dry and intact, with TKO running at 10mL/hr. Call mccormack is placed within reach. Bed is locked. Will continue monitoring and care.
[2022-08-01] MEDS: LACOSAMIDE 50 MG TABLET PO SCH ×2 (08:31→21:30)
[2022-08-01] MEDS: DULOXETINE HCL 30 MG CAPSULE.DR PO SCH (08:32)
[2022-08-01] MEDS: BENAZEPRIL HCL 10 MG TABLET PO SCH (08:32)
[2022-08-01] MEDS: QUETIAPINE FUMARATE 25 MG TABLET PO SCH ×2 (08:32→21:30)
[2022-08-01] MEDS: DIVALPROEX SODIUM 125 MG CAP.SPRINK PO SCH ×2 (08:33→17:12)
[2022-08-01] MEDS: DAKINS QUARTER STRENGTH (0.125%) 480 ML BOTTLE TOP SCH (08:33)
[2022-08-01] MEDS: SENNOSIDES 8.6 MG TABLET PO SCH ×2 (08:33→16:23)
[2022-08-01] MEDS: POLYETHYLENE GLYCOL 3350 17 GM POWD.PACK PO SCH ×2 (08:33→16:23)
[2022-08-01] MEDS: THERAHONEY GEL 1.5 OZ TUBE TP SCH (08:34)
[2022-08-01] MEDS: GENTAMICIN 0.1% OINT 15 GM TUBE TP SCH (08:34)
--- NOTE | 2022-08-01 16:00 | NUR ---
RECEIVED HAND OFF REPORT FROM SANDIE FRAUSTO. PATIENT TRANSFERRED TO [facility] BED 114-1. WILL CONTINUE PLAN OF CARE AND ANTICIPATE NEEDS.
--- NOTE | 2022-08-01 18:30 | NUR ---
PATIENT REFUSED DINNER TRAY. EXPLAINED THE IMPORTANCE OF ADHEARING TO DIET. PATIENT SAID TO LEAVE THE TRAY AND THAT HE WOULD "...TRY TO TAKE SOME BITES". PATIENT DRINKING ENSURE AT THIS TIME
--- NOTE | 2022-08-01 18:59 | NUR ---
RN CLOSING NOTES PATIENT BREATHING EVENLY AND UNLABORED ON NASAL CANULA AT 4 LITERS. SINUS RHYTHM ON THE MONITOR AT THIS TIME. MICHELLE ATTACHED DRAINING OUTPUT. IV ACCESS ON RIGHT UPPER ARM PICC LINE AND RIGHT ANTECUBITAL 18 GAUGE. WOUND DRESSINGS INTACT. SAFETY MEASURES IMPLEMENTED. WILL ENDORSE TO NIGHTSHIFT SANDIE POSADA FOR CONTINUATION OF CARE.
--- NOTE | 2022-08-01 19:30 | NUR ---
PATIENT AWAKE. BREATHING EVENLY AND UNLABORED ON NASAL CANULA AT 4 LITERS. SINUS RHYTHM ON THE MONITOR AT THIS TIME. MICHELLE ATTACHED. IV ACCESS ON RIGHT UPPER ARM PICC LINE AND RIGHT ANTECUBITAL [address] SAFETY MEASURES IN PLACE. WILL CONTINUE PLAN OF CARE.
[2022-08-01] MEDS: VANCOMYCIN 1.5 GM in IV D5W 500 ML IV SCH (20:00)
[2022-08-01] MEDS: GABAPENTIN 100 MG CAPSULE PO SCH (21:30)
[2022-08-01] MEDS: ATORVASTATIN 40 MG TABLET PO SCH (21:30)
[2022-08-01] MEDS: *INSULIN REGULAR(HUMULIN R)HUM 100 UNIT/ML VIAL SQ PRN (21:47)
--- NOTE | 2022-08-01 23:10 | NUR ---
Endorsed to Charge nurse.
[2022-08-02] VITALS: BP 133/76
[2022-08-02] MEDS: IPRATROPIUM NEB FS 0.5 MG/2.5 ML AMPUL.NEB NEB SCH ×7 (00:03→23:13)
[2022-08-02 04:00] VITALS: BP 133/71
[2022-08-02] MEDS: CEFEPIME 2 GM in IV D5W 100 ML IV SCH ×2 (05:48→12:31)
--- NOTE | 2022-08-02 07:43 | NUR ---
RN CLOSING NOTE RECEIVED PATIENT 2300. A/OX3. 4L NC. NO C/O PAIN. SINUS RHYTHM ON THE MONITOR. MICHELLE CATHETER MAINTAINED. BM X1. ASP PRECAUTIONS MAINTAINED. PLAN TO CONTINUE DIURETICS AND ABX. POSSIBLE BLE ANGIOGRAM WHEN RENAL FUNCTION IMPROVES.
[2022-08-02 07:53] LABS: BASOPHILS # (AUTO) 0.1 K/uL (0.0-0.2); BASOPHILS % (AUTO) 0.7 % (0.0-2.0); EOSINOPHILS % (AUTO) 3.7 % (0.0-6.0); HEMATOCRIT 35 % (39-51); HEMOGLOBIN 10.8 g/dL (13.5-17.5); LYMPHOCYTES # (AUTO) 2.2 K/uL (0.8-4.8); LYMPHOCYTES % (AUTO) 13.4 % (20.0-44.0); MEAN CORPUSCULAR HGB CONC 31 g/dl (31.0-36.0); MEAN CORPUSCULAR VOLUME 84 fL (80-96); MONOCYTES # (AUTO) 1.4 K/uL (0.1-1.30); MONOCYTES % (AUTO) 8.7 % (2.0-12.0); NEUTROPHILS # (AUTO) 11.9 K/uL (1.8-8.9); NEUTROPHILS % (AUTO) 73.5 % (43.0-81.0); PLATELET COUNT (AUTO) 400 K/uL (150-450); RED BLOOD CELL COUNT(AUTO) 4.15 MIL/uL (4.5-6.0); WHITE BLOOD COUNT (AUTO) 16.2 K/uL (4.3-11.0)
[2022-08-02 08:00] VITALS: BP 132/74
--- NOTE | 2022-08-02 08:00 | NUR ---
METAL BUFFER OPENING NOTES RECEIVED PATIENT IN BED SLEEPING, ALERT AND VERBALLY RESPONSIVE WHEN AWAKEN. ON 4LPM 02 VIA NC, TOLERATING WELL, SINUS RHYTHM ON THE MONITOR AT THIS TIME.WITH F/C DRAINING VIA GRAVITY. RIGHT UPPER ARM PICC LINE PATENT AND INTACT, FLUSHES WELL ON TKO AND RIGHT ANTECUBITAL 18 GAUGE. WOUND DRESSINGS INTACT. SAFETY MEASURES IMPLEMENTED. PLAN OF CARE CONTINUE.
[2022-08-02 08:03] LABS: CALCIUM, SERUM 8.4 mg/dL (8.5-10.1); CREATININE 1.4 mg/dL (0.6-1.3); MAGNESIUM 1.9 mg/dL (1.8-2.4); PHOSPHORUS 3.2 mg/dL (2.5-4.9); POTASSIUM 3.9 mmol/L (3.5-5.1)
[2022-08-02] MEDS: BLOOD SUGAR DIAGNOSTIC 1 EACH STRIP VI SCH ×4 (08:12→21:28)
[2022-08-02] MEDS: POLYETHYLENE GLYCOL 3350 17 GM POWD.PACK PO SCH ×2 (09:00→16:23)
[2022-08-02] MEDS: SENNOSIDES 8.6 MG TABLET PO SCH ×2 (09:00→16:24)
--- NOTE | 2022-08-02 09:00 | NUR ---
ISATU CARE RENDERED, NOTED XXLARGE SOFT BM, WOUND CARE DONE. PLAN OF CARE CONTINUE.
[2022-08-02] MEDS: DAKINS QUARTER STRENGTH (0.125%) 480 ML BOTTLE TOP SCH (09:12)
[2022-08-02] MEDS: GENTAMICIN 0.1% OINT 15 GM TUBE TP SCH (09:13)
[2022-08-02] MEDS: THERAHONEY GEL 1.5 OZ TUBE TP SCH (09:13)
[2022-08-02] MEDS: QUETIAPINE FUMARATE 25 MG TABLET PO SCH ×2 (09:16→21:00)
[2022-08-02] MEDS: LACOSAMIDE 50 MG TABLET PO SCH ×2 (09:16→21:00)
[2022-08-02] MEDS: DIVALPROEX SODIUM 125 MG CAP.SPRINK PO SCH ×2 (09:16→16:32)
[2022-08-02] MEDS: BENAZEPRIL HCL 10 MG TABLET PO SCH (09:17)
[2022-08-02] MEDS: DULOXETINE HCL 30 MG CAPSULE.DR PO SCH (09:17)
--- NOTE | 2022-08-02 10:00 | NUR ---
DIETARY ORDERED, DC RENAL DIET AND CHANGED TO LOW SODIUM, NOTED AND CARRIED OUT.
[2022-08-02 12:00] VITALS: BP 124/69
[2022-08-02] MEDS: VANCOMYCIN 1.5 GM in IV D5W 500 ML IV SCH (13:44)
[2022-08-02 16:00] VITALS: BP 136/72
[2022-08-02 16:10] LABS: ABG BASE EXCESS 3.6 mmol/L; ABG OXYGEN SATURATION 90.3 % (92.0-98.5); ABG PH 7.341 (7.350-7.450); ABG PO2 57.2 mmHg (75.0-100.0); AaDO2 132.2 mmHg; COHb 0.6 % (0.5-1.5); MetHb 0.1 % (0.0-1.5); O2Hb 89.7 % (94.0-97.0); SITE, ABG Left Radial
--- NOTE | 2022-08-02 16:15 | NUR ---
NOTED PATIENT MORE CONFUSED, ABG DONE, INFORMED DR. HUBER OF THE RESULT, WITH ORDER TO CONTINUE NOCTURNAL BIPAP 20/10 AND ABG CARLINE. AM AFTER NOCTURNAL BIPAP OFF. NOTED AND CARRIED OUT, FAMILY MEMBER AT THE BEDSIDE. PLAN OF CARE CONTINUE.
--- NOTE | 2022-08-02 16:45 | NUR ---
SS Note: SS CONSULT REQUESTED. SW WILL FOLLOW UP AT A LATER TIME.
[2022-08-02] MEDS: INSULIN REGULAR, HUMAN 100 UNIT/ML 3 ML VIAL SQ PRN (17:44)
--- NOTE | 2022-08-02 17:45 | NUR ---
PATIENT NOT EATING DINNER, HELD INSULIN SLIDING SCALE. PLAN OF CARE CONTINUE.
--- NOTE | 2022-08-02 18:13 | NUR ---
NOTED 4 SECONDS OF V TACH ON TELE MONITOR, INFORMED DR. BABIN, AWAITING FOR ORDERS. NO C/O OF CHEST PAIN, NOT IN DISTRESS, WILL ENDORSE TO NIGHT NURSE.
--- NOTE | 2022-08-02 18:53 | NUR ---
VIDEO EDITOR CLOSING NOTES PATIENT IN BED AWAKE, FAMILY MEMBER AT THE BEDSIDE, ALERT AND VERBALLY RESPONSIVE WHEN AWAKEN. ON 4LPM 02 VIA NC, TOLERATING WELL, SINUS RHYTHM ON THE MONITOR AT THIS TIME. WITH F/C DRAINING VIA GRAVITY WITH YELLOW URINE NOTED. RIGHT UPPER ARM PICC LINE PATENT AND INTACT, FLUSHES WELL ON TKO AND RIGHT ANTECUBITAL 18 GAUGE. WOUND DRESSINGS INTACT. BLE ELEVATED. SAFETY MEASURES IMPLEMENTED. WILL ENDORSE TO NIGHT NURSE FOR CRISTAL.
[2022-08-02 20:00] VITALS: BP 152/71
--- NOTE | 2022-08-02 20:12 | NUR ---
[facility]/RN PATIENT IS AWAKE, ALERT AND ORIENTED, NO C/O PAIN, NO SIGNS OF DISTRESS NOTED, FALL PRECAUTIONS PER PROTOCOL IMPLEMENTED, CALL LIGHT IN REACH, WILL MONITOR.
[2022-08-02] MEDS: AMIKACIN 500 MG in IV D5W 100 ML IV SCH (21:23)
[2022-08-02] MEDS: ATORVASTATIN 40 MG TABLET PO SCH (22:00)
[2022-08-02] MEDS: GABAPENTIN 100 MG CAPSULE PO SCH (22:00)
--- NOTE | 2022-08-02 22:00 | NUR ---
RT NOTE NO BIPAP ORDERS NOTED. REPORTED TO CHARGE NURSE ELVIRA AND PRIMARY RN LITZY AND ARE AWARE. WILL CONTINUE TO MONITOR PATIENT ON NASAL CANNULA @ 4 LPM.
[2022-08-03] VITALS: BP 148/47
[2022-08-03 04:00] VITALS: BP 152/86
[2022-08-03] MEDS: IPRATROPIUM NEB FS 0.5 MG/2.5 ML AMPUL.NEB NEB SCH ×6 (04:19→23:44)
[2022-08-03] MEDS: AMIKACIN 500 MG in IV D5W 100 ML IV SCH ×3 (04:47→20:30)
[2022-08-03] MEDS: IV NS 0.9% 250 ML IV PRN (04:47)
--- NOTE | 2022-08-03 06:30 | NUR ---
[facility]/RN PATIENT IS AWAKE, NO C/O PAIN, NO SIGNS OF DISTRESS NOTED, PICC LINE IN PLACE WITH NS AT TKO, HOB ELEVATED, 5L O2, ALL NEEDS ATTENDED AT THIS TIME, WILL CONTINUE TO MONITOR.
[2022-08-03 06:35] LABS: CALCIUM, SERUM 8.5 mg/dL (8.5-10.1); CREATININE 1.4 mg/dL (0.6-1.3); POTASSIUM 3.9 mmol/L (3.5-5.1)
--- NOTE | 2022-08-03 07:15 | NUR ---
AIR BRAKE WORKER OPENING NOTES Recieved pt awake in bed AOx4. Nio complaints of pain or discomfort at this time. Pt is on 4L and tolerating it well. IV access on RUIA PICC line and RAC 18G patent and intact. HOB elevated to pts comfort. Sderails up at all times. Bed at its lowest setting and locked. Call light within reach. Will continue to monitor.
[2022-08-03] MEDS: BLOOD SUGAR DIAGNOSTIC 1 EACH STRIP VI SCH ×4 (07:42→22:07)
[2022-08-03 08:00] VITALS: BP 159/91
[2022-08-03] MEDS: DULOXETINE HCL 30 MG CAPSULE.DR PO SCH (09:02)
[2022-08-03] MEDS: BENAZEPRIL HCL 10 MG TABLET PO SCH (09:02)
[2022-08-03] MEDS: SENNOSIDES 8.6 MG TABLET PO SCH ×2 (09:02→16:18)
[2022-08-03] MEDS: DIVALPROEX SODIUM 125 MG CAP.SPRINK PO SCH ×2 (09:02→16:18)
[2022-08-03] MEDS: QUETIAPINE FUMARATE 25 MG TABLET PO SCH ×2 (09:02→20:26)
[2022-08-03] MEDS: LACOSAMIDE 50 MG TABLET PO SCH ×2 (09:03→20:26)
[2022-08-03] MEDS: POLYETHYLENE GLYCOL 3350 17 GM POWD.PACK PO SCH ×2 (09:05→16:18)
[2022-08-03] MEDS: DAKINS QUARTER STRENGTH (0.125%) 480 ML BOTTLE TOP SCH (09:16)
[2022-08-03] MEDS: THERAHONEY GEL 1.5 OZ TUBE TP SCH (09:16)
[2022-08-03] MEDS: GENTAMICIN 0.1% OINT 15 GM TUBE TP SCH (09:16)
[2022-08-03 09:49] LABS: ABG BASE EXCESS 0.8 mmol/L; ABG PCO2 51.2 mmHg (35.0-45.0); ABG PH 7.344 (7.350-7.450); ABG PO2 66.1 mmHg (75.0-100.0); COHb 0.3 % (0.5-1.5); MetHb 0.2 % (0.0-1.5); O2Hb 92.4 % (94.0-97.0); SITE, ABG Right Radial; VENT MODE, BG 4 LPM NC
--- NOTE | 2022-08-03 10:30 | NUR ---
CURTAIN FITTER NOTES Thoracentesis or the right lung done at bedside with Dr. Savage. 2L of fluid taken out. Pt tolerated the procedure well.
--- NOTE | 2022-08-03 10:40 | NUR ---
DATA RECOVERY PLANNER NOTES Thoracentesis fluid 2L dropped off to lab for testing per Dr. Munguia.
[2022-08-03 12:00] VITALS: BP 146/84
--- NOTE | 2022-08-03 15:05 | NUR ---
HUI NOTES Consent signed for tomorrows Left foot debridement and allograft application along with the blood transfusion consent. Jr CUELLAR and I signed witness.
[2022-08-03 16:00] VITALS: BP 144/92
--- NOTE | 2022-08-03 19:00 | NUR ---
PRODUCTION DIRECTOR CLOSING NOTES All due meds and tx given as ordered. Pt tolerated everything well. All needs attended to. Pt is currently on 4L NC and tolerating it well. IV access on DU PICC line patent and intact. HOB elevated to pts comfort. Siderails up at all times. Bed at its lowest setting and locked. Call light within reach. Will endorse to oncoming nurse.
--- NOTE | 2022-08-03 19:30 | NUR ---
RN OPENING NOTES Received pt awake in bed, a/o x 4. Able to verbalize needs. Currently on o2 via nc @ 4L, tolerating well. compliance monitor reads NSR. No s/sx of acute respi distress noted at this time. No SOB, No pain. IV access on DU PICC line and RAC, 18G, both patent and intact. Carias cath in place, draining yellow urine by gravity. All safety measures in place: Bed locked in low position, bed alarm on. HOB elevated, SR up x 2. Call light within reach. Will continue to monitor pt.
[2022-08-03 20:00] VITALS: BP 141/82
[2022-08-03] MEDS: GABAPENTIN 100 MG CAPSULE PO SCH (21:05)
[2022-08-03] MEDS: ATORVASTATIN 40 MG TABLET PO SCH (21:05)
[2022-08-03] MEDS: *INSULIN REGULAR(HUMULIN R)HUM 100 UNIT/ML VIAL SQ PRN (22:07)
[2022-08-03] MEDS: VANCOMYCIN 1.5 GM in IV D5W 500 ML IV SCH (23:35)
[2022-08-04] VITALS (9 sets, daily range): BP systolic 118–153; BP diastolic 64–91
[2022-08-04] MEDS: IPRATROPIUM NEB FS 0.5 MG/2.5 ML AMPUL.NEB NEB SCH ×6 (03:55→23:40)
[2022-08-04] MEDS ORDERED: MEROPENEM 500 MG VIAL IV ONE (04:19)
[2022-08-04] MEDS ORDERED: MEROPENEM 500 MG in IV NS 0.9% 50 ML IV SCH ×2 (05:00→13:00)
[2022-08-04 05:53] LABS: BASOPHILS # (AUTO) 0.1 K/uL (0.0-0.2); BASOPHILS % (AUTO) 0.6 % (0.0-2.0); EOSINOPHILS % (AUTO) 3.5 % (0.0-6.0); HEMATOCRIT 37 % (39-51); HEMOGLOBIN 11.4 g/dL (13.5-17.5); LYMPHOCYTES # (AUTO) 2.7 K/uL (0.8-4.8); LYMPHOCYTES % (AUTO) 18.6 % (20.0-44.0); MEAN CORPUSCULAR HGB CONC 31 g/dl (31.0-36.0); MEAN CORPUSCULAR VOLUME 83 fL (80-96); MONOCYTES # (AUTO) 1.1 K/uL (0.1-1.30); MONOCYTES % (AUTO) 7.6 % (2.0-12.0); NEUTROPHILS # (AUTO) 10.1 K/uL (1.8-8.9); NEUTROPHILS % (AUTO) 69.7 % (43.0-81.0); PLATELET COUNT (AUTO) 371 K/uL (150-450); RED BLOOD CELL COUNT(AUTO) 4.38 MIL/uL (4.5-6.0); WHITE BLOOD COUNT (AUTO) 14.5 K/uL (4.3-11.0)
[2022-08-04 06:06] LABS: CALCIUM, SERUM 8.4 mg/dL (8.5-10.1); CREATININE 1.3 mg/dL (0.6-1.3); MAGNESIUM 1.9 mg/dL (1.8-2.4); PHOSPHORUS 2.5 mg/dL (2.5-4.9)
--- NOTE | 2022-08-04 07:15 | NUR ---
CUSTOMER SERVICE REPRESENTATIVE TELLER OPENING NOTES Received pt awake in bed AOx4. No complaints of pain or discomfort at this time. Pt is on 4L and tolerating it well. IV access on DU PICC line and RAC 18G patent and intact. HOB elevated to pts comfort. Sderails up at all times. Bed at its lowest setting and locked. Call light within reach. Will continue to monitor.
[2022-08-04] MEDS: BLOOD SUGAR DIAGNOSTIC 1 EACH STRIP VI SCH ×4 (07:30→21:46)
[2022-08-04] MEDS: DIVALPROEX SODIUM 125 MG CAP.SPRINK PO SCH ×2 (08:47→17:00)
[2022-08-04] MEDS: BENAZEPRIL HCL 10 MG TABLET PO SCH (08:47)
[2022-08-04] MEDS: POLYETHYLENE GLYCOL 3350 17 GM POWD.PACK PO SCH ×2 (08:47→17:00)
[2022-08-04] MEDS: DULOXETINE HCL 30 MG CAPSULE.DR PO SCH (08:47)
[2022-08-04] MEDS: SENNOSIDES 8.6 MG TABLET PO SCH ×2 (08:47→17:00)
[2022-08-04] MEDS: QUETIAPINE FUMARATE 25 MG TABLET PO SCH ×2 (08:47→21:16)
[2022-08-04] MEDS: GENTAMICIN 0.1% OINT 15 GM TUBE TP SCH (08:48)
[2022-08-04] MEDS: DAKINS QUARTER STRENGTH (0.125%) 480 ML BOTTLE TOP SCH (08:48)
[2022-08-04] MEDS: THERAHONEY GEL 1.5 OZ TUBE TP SCH (08:48)
[2022-08-04] MEDS: LACOSAMIDE 50 MG TABLET PO SCH ×2 (08:48→21:15)
[2022-08-04] MEDS ORDERED: IV D5W 1,000 ML IV ONE (09:00)
[2022-08-04] MEDS: LINEZOLID 600 MG TABLET PO SCH ×2 (11:57→21:16)
--- NOTE | 2022-08-04 12:30 | NUR ---
SYSTEMATIC THEOLOGY PROFESSOR NOTES Called surgery to follow up on pts Left foot debridement procedure and stated that the procedure got rescheduled to Tuesday by .
[2022-08-04] MEDS ORDERED: AMIKACIN 500 MG in IV D5W 100 ML IV SCH (13:00)
[2022-08-04] MEDS: METRONIDAZOLE 500 MG TABLET PO SCH ×2 (13:14→21:16)
--- NOTE | 2022-08-04 14:30 | NUR ---
ELIGIBILITY CONSULTANT NOTES Pt picked up by surgery to go to abdominal angio procedure.
[2022-08-04] MEDS ORDERED: [UNRECOGNIZED DRUG - OTHER] MC ONE (15:01)
[2022-08-04] MEDS ORDERED: IV NS 0.9% 1,000 ML ONE (15:01)
[2022-08-04] MEDS ORDERED: LIDOCAINE HCL/PF 1% 30 ML SDV ONE (15:02)
[2022-08-04] MEDS ORDERED: FENTANYL PF 100MCG/2ML AMPUL ONE ×2 (15:02→16:26)
[2022-08-04] MEDS ORDERED: MIDAZOLAM HCL 2 MG/2ML VIAL ONE (15:02)
[2022-08-04] MEDS ORDERED: IODIXANOL 150 ML IV ONE ×2 (15:03→16:13)
[2022-08-04] MEDS ORDERED: HEPARIN SODIUM, PORCINE 5000 UNITS/1 ML VIAL ONE (16:06)
[2022-08-04] MEDS ORDERED: CLOPIDOGREL BISULFATE 300 MG TABLET ONE (16:32)
--- NOTE | 2022-08-04 17:05 | NUR ---
PROPERTY MAINTENANCE TECHNICIAN RECEIVED PT FROM RN SURGICAL PCU. S/P L POST TIB AND L PERONEAL. BOTH FEMORAL SITES INTACT. NO BLEEDING SEEN.. RLE DRESSING INTACT.
--- NOTE | 2022-08-04 18:05 | NUR ---
SHEAR HELPER ZOFRAN GIVEN FOR C/O NAUSEA.
[2022-08-04] MEDS: IV NS 0.9% 250 ML IV PRN (19:16)
[2022-08-04] MEDS: AMIKACIN 500 MG in IV D5W 100 ML IV SCH (19:25)
--- NOTE | 2022-08-04 19:30 | NUR ---
RN NOTE RECEIVED PT IN BED, COMFORTABLY RESTING. ON O2 VIA NC 4LPM, WELL TOLERATED, O2 SAT 95%, RESPIRATIONS EVEN AND UNLABORED. AFEBRILE. IV ACCESS ON DU PICC LINE AND RAC #18G, CLEAN, DRY AND INTACT, NO S/S OF CX. FC IN PLACED, PATENT, SECURED, DRAINING DARK YELLOW URINE. HOB SLIGHTLY ELEVATED. WILL CONT POC.
[2022-08-04] MEDS: ATORVASTATIN 40 MG TABLET PO SCH (21:16)
[2022-08-04] MEDS: GABAPENTIN 100 MG CAPSULE PO SCH (21:16)
[2022-08-04] MEDS: *INSULIN REGULAR(HUMULIN R)HUM 100 UNIT/ML VIAL SQ PRN (21:47)
--- NOTE | 2022-08-04 21:47 | NUR ---
RN NOTE BS 106MG/DL, NO INSULIN COVERAGE NEEDED PER SLIDING SCALE ORDERED.
--- NOTE | 2022-08-04 22:45 | NUR ---
RN NOTE REPORT GIVEN TO SANDIE AVITIA, PT'S ROOM 114-1
--- NOTE | 2022-08-04 23:15 | NUR ---
RN NOTE PT TRANSFERRED TO 114-1
[2022-08-05] VITALS: BP 140/72
--- NOTE | 2022-08-05 00:52 | NUR ---
RT pt refused noc bipap. notified bean jordan rn
[2022-08-05] MEDS: AMIKACIN 500 MG in IV D5W 100 ML IV SCH ×2 (01:24→10:59)
[2022-08-05] MEDS: IPRATROPIUM NEB FS 0.5 MG/2.5 ML AMPUL.NEB NEB SCH ×6 (03:50→23:25)
[2022-08-05 04:00] VITALS: BP 132/74
[2022-08-05] MEDS: METRONIDAZOLE 500 MG TABLET PO SCH ×3 (05:23→21:06)
[2022-08-05 06:10] LABS: BASOPHILS # (AUTO) 0.1 K/uL (0.0-0.2); BASOPHILS % (AUTO) 0.7 % (0.0-2.0); EOSINOPHILS % (AUTO) 2.6 % (0.0-6.0); HEMATOCRIT 37 % (39-51); HEMOGLOBIN 11.3 g/dL (13.5-17.5); LYMPHOCYTES # (AUTO) 2.4 K/uL (0.8-4.8); LYMPHOCYTES % (AUTO) 15.3 % (20.0-44.0); MEAN CORPUSCULAR HGB CONC 31 g/dl (31.0-36.0); MEAN CORPUSCULAR VOLUME 84 fL (80-96); MONOCYTES # (AUTO) 1.5 K/uL (0.1-1.30); MONOCYTES % (AUTO) 9.5 % (2.0-12.0); NEUTROPHILS # (AUTO) 11.4 K/uL (1.8-8.9); NEUTROPHILS % (AUTO) 71.9 % (43.0-81.0); PLATELET COUNT (AUTO) 309 K/uL (150-450); RED BLOOD CELL COUNT(AUTO) 4.33 MIL/uL (4.5-6.0); WHITE BLOOD COUNT (AUTO) 15.8 K/uL (4.3-11.0)
[2022-08-05 06:17] LABS: CALCIUM, SERUM 8.4 mg/dL (8.5-10.1); CREATININE 1.3 mg/dL (0.6-1.3)
[2022-08-05 08:00] VITALS: BP 139/76
[2022-08-05] MEDS: BLOOD SUGAR DIAGNOSTIC 1 EACH STRIP VI SCH ×4 (08:13→21:07)
[2022-08-05] MEDS: INSULIN REGULAR, HUMAN 100 UNIT/ML 3 ML VIAL SQ PRN (08:37)
[2022-08-05] MEDS: DAKINS QUARTER STRENGTH (0.125%) 480 ML BOTTLE TOP SCH (09:20)
[2022-08-05] MEDS: THERAHONEY GEL 1.5 OZ TUBE TP SCH (09:21)
[2022-08-05] MEDS: GENTAMICIN 0.1% OINT 15 GM TUBE TP SCH (09:21)
[2022-08-05] MEDS: BENAZEPRIL HCL 10 MG TABLET PO SCH (09:58)
[2022-08-05] MEDS: POLYETHYLENE GLYCOL 3350 17 GM POWD.PACK PO SCH ×2 (09:58→18:11)
[2022-08-05] MEDS: LACOSAMIDE 50 MG TABLET PO SCH ×2 (09:58→21:06)
[2022-08-05] MEDS: LINEZOLID 600 MG TABLET PO SCH ×2 (09:58→21:06)
[2022-08-05] MEDS: DULOXETINE HCL 30 MG CAPSULE.DR PO SCH (09:59)
[2022-08-05] MEDS: QUETIAPINE FUMARATE 25 MG TABLET PO SCH ×2 (09:59→21:06)
[2022-08-05] MEDS: SENNOSIDES 8.6 MG TABLET PO SCH ×2 (09:59→18:11)
[2022-08-05] MEDS: DIVALPROEX SODIUM 125 MG CAP.SPRINK PO SCH ×2 (09:59→18:11)
[2022-08-05] MEDS: IV NS 0.9% 250 ML IV PRN (11:00)
[2022-08-05 12:00] VITALS: BP 134/76
[2022-08-05] MEDS: *INSULIN REGULAR(HUMULIN R)HUM 100 UNIT/ML VIAL SQ PRN ×2 (13:34→21:21)
--- NOTE | 2022-08-05 14:10 | NUR ---
RN NOTE CRITICAL LAB [facility] TROUGH 14.6. NOTIFIED PHARMACY. 1800 DOSE TO BE ADJUSTED.
[2022-08-05 16:00] VITALS: BP 128/73
[2022-08-05] MEDS: FUROSEMIDE 40 MG/4 ML VIAL IV SCH (16:36)
--- NOTE | 2022-08-05 19:42 | NUR ---
RN OPENING NOTE RECEIVED PT IN BED, COMFORTABLY RESTING. ON O2 VIA NC 2LPM, WELL TOLERATED,RESPIRATIONS EVEN AND UNLABORED. IV ACCESS ON DU PICC LINE AND RAC #18G, CLEAN, DRY AND INTAC. FC IN PLACED, PATENT, SECURED, DRAINING URINE. HOB SLIGHTLY ELEVATED. ALL SAFETY MEASURES FOLLOWED. BED IN LOW LOCKED POSITION.
--- NOTE | 2022-08-05 19:58 | NUR ---
RN CLOSING NOTE PT IN BED, COMFORTABLY RESTING. ON O2 VIA NC 2LPM, WELL TOLERATED, RESPIRATIONS EVEN AND UNLABORED. IV ACCESS ON DU PICC LINE AND RAC #18G, CLEAN, DRY AND INTAC. FC IN PLACED, PATENT, SECURED, DRAINING URINE. HOB SLIGHTLY ELEVATED. ALL SAFETY MEASURES FOLLOWED. BED IN LOW LOCKED POSITION. 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
[2022-08-05 20:00] VITALS: BP 128/80
--- NOTE | 2022-08-05 20:03 | NUR ---
RN NOTE PT REFUSING BIPAP AT THIS TIME X3 OFFERED TO COME AT A LATER TIME PT STATED " NO I JUST DON'T WANT IT TONIGHT"
[2022-08-05] MEDS: GABAPENTIN 100 MG CAPSULE PO SCH (21:06)
[2022-08-05] MEDS: ATORVASTATIN 40 MG TABLET PO SCH (21:06)
[2022-08-06] VITALS: BP 120/77
[2022-08-06] MEDS: IPRATROPIUM NEB FS 0.5 MG/2.5 ML AMPUL.NEB NEB SCH ×6 (03:30→23:56)
[2022-08-06 04:00] VITALS: BP 118/86
[2022-08-06] MEDS: METRONIDAZOLE 500 MG TABLET PO SCH ×3 (05:45→20:48)
[2022-08-06 06:16] LABS: BASOPHILS # (AUTO) 0.1 K/uL (0.0-0.2); BASOPHILS % (AUTO) 0.8 % (0.0-2.0); EOSINOPHILS % (AUTO) 2.8 % (0.0-6.0); HEMATOCRIT 38 % (39-51); HEMOGLOBIN 11.8 g/dL (13.5-17.5); LYMPHOCYTES # (AUTO) 2.2 K/uL (0.8-4.8); LYMPHOCYTES % (AUTO) 13.9 % (20.0-44.0); MEAN CORPUSCULAR HGB CONC 31 g/dl (31.0-36.0); MEAN CORPUSCULAR VOLUME 84 fL (80-96); MONOCYTES # (AUTO) 1.2 K/uL (0.1-1.30); MONOCYTES % (AUTO) 7.8 % (2.0-12.0); NEUTROPHILS # (AUTO) 11.9 K/uL (1.8-8.9); NEUTROPHILS % (AUTO) 74.7 % (43.0-81.0); PLATELET COUNT (AUTO) 352 K/uL (150-450); RED BLOOD CELL COUNT(AUTO) 4.52 MIL/uL (4.5-6.0); WHITE BLOOD COUNT (AUTO) 15.9 K/uL (4.3-11.0)
[2022-08-06 06:43] LABS: CALCIUM, SERUM 8.6 mg/dL (8.5-10.1); CREATININE 1.4 mg/dL (0.6-1.3)
--- NOTE | 2022-08-06 07:19 | NUR ---
RN OPENING NOTE RECEIVED PT IN BED, COMFORTABLY RESTING. ON O2 VIA NC 2LPM, WELL TOLERATED,RESPIRATIONS EVEN AND UNLABORED. IV ACCESS ON DU PICC LINE AND RAC #18G, CLEAN, DRY AND INTAC. FC IN PLACED, PATENT, SECURED, DRAINING CLEAR YELLOW URINE. HOB SLIGHTLY ELEVATED. ALL SAFETY MEASURES FOLLOWED. BED IN LOW LOCKED POSITION. CALL LIGHT WITHIN REACH WILL CONTINUE TO MONITOR
--- NOTE | 2022-08-06 07:45 | NUR ---
INSOLE TACKER OPENING NOTES: RN OPENING NOTE RECEIVED PT IN BED, COMFORTABLY RESTING, AWAKE, A/O X4. ON 2L O2 VIA NC, TOLERATING WELL, RESPIRATIONS EVEN AND UNLABORED. IV ACCESS ON DU PICC LINE, KVO NS @ 10ML/HR, DRESSING C/D/I. MICHELLE CATH IN PLACE DRAINING CLEAR, YELLOW URINE. HOB SLIGHTLY ELEVATED. ALL SAFETY MEASURES IN PLACE, BED IN LOW LOCKED POSITION. CALL LIGHT AND TABLE WITHIN REACH WILL CONTINUE WITH PLAN OF CARE DURING SHIFT. Addendum: 08/06/22 at 1853 by PONCE HARDIN RN TELE MONITOR READS SR= 89
[2022-08-06 08:00] VITALS: BP 123/70
[2022-08-06] MEDS: BLOOD SUGAR DIAGNOSTIC 1 EACH STRIP VI SCH ×4 (08:25→22:19)
[2022-08-06] MEDS: LINEZOLID 600 MG TABLET PO SCH ×2 (08:29→20:48)
[2022-08-06] MEDS: DULOXETINE HCL 30 MG CAPSULE.DR PO SCH (08:29)
[2022-08-06] MEDS: SENNOSIDES 8.6 MG TABLET PO SCH ×2 (08:29→16:05)
[2022-08-06] MEDS: QUETIAPINE FUMARATE 25 MG TABLET PO SCH ×2 (08:29→20:48)
[2022-08-06] MEDS: FUROSEMIDE 40 MG/4 ML VIAL IV SCH (08:30)
[2022-08-06] MEDS: BENAZEPRIL HCL 10 MG TABLET PO SCH (08:30)
[2022-08-06] MEDS: LACOSAMIDE 50 MG TABLET PO SCH ×2 (08:30→20:48)
[2022-08-06] MEDS: POLYETHYLENE GLYCOL 3350 17 GM POWD.PACK PO SCH ×2 (08:31→16:05)
[2022-08-06] MEDS: DIVALPROEX SODIUM 125 MG CAP.SPRINK PO SCH ×2 (08:31→16:05)
[2022-08-06] MEDS: THERAHONEY GEL 1.5 OZ TUBE TP SCH (09:11)
[2022-08-06] MEDS: GENTAMICIN 0.1% OINT 15 GM TUBE TP SCH (09:11)
[2022-08-06] MEDS: DAKINS QUARTER STRENGTH (0.125%) 480 ML BOTTLE TOP SCH (09:12)
[2022-08-06] MEDS: AMIKACIN 500 MG in IV D5W 100 ML IV SCH ×2 (11:40→22:13)
[2022-08-06 12:00] VITALS: BP 119/70
[2022-08-06] MEDS: CLOPIDOGREL BISULFATE 75 MG TABLET PO SCH (15:00)
--- NOTE | 2022-08-06 16:39 | NUR ---
RECEIVED PATIENT ON 2LNC SATURATIONS AT 96-100%. MD ORDERED HHN TXS HARLEY WELL WITH NO ADVERSE REACTION NOTED.
[2022-08-06 18:00] VITALS: BP 113/69
--- NOTE | 2022-08-06 19:10 | NUR ---
NURSE RN BSN CLOSING NOTES: PT IN BED, ASLEEP BUT EASILY ROUSED, A/O X4. ON 2L O2 VIA NC, TOLERATING WELL, RESPIRATIONS EVEN AND UNLABORED. TELE MONITOR READS SR= 85. IV ACCESS ON DU PICC LINE, KVO NS @ 10ML/HR, DRESSING C/D/I. MICHELLE CATH IN PLACE DRAINING CLEAR, YELLOW URINE, OUTPUT = 2100CC. WOUND CARE DONE, KEPT PT CLEAN DRY COMFORTABLE, ALL NEEDS MET. HOB SLIGHTLY ELEVATED. ALL SAFETY MEASURES IN PLACE, BED IN LOW LOCKED POSITION. CALL LIGHT AND TABLE WITHIN REACH, WILL ENDORSE TO PM SHIFT.
--- NOTE | 2022-08-06 19:41 | NUR ---
noc rn opening note received patient in bed. a/ox4. no s/s of apparent distress in 2lpm of o2 via nc. denies any pain at this time.DU PICC running TKO. reading sr on the tele monitor. dawn catheter draining via gravity. safety in place. re-oriented with the use of call light. will continue with patient's plan of care.
[2022-08-06 20:00] VITALS: BP 124/68
--- NOTE | 2022-08-06 22:00 | NUR ---
RT NOTE PATIENT REFUSING BIPAP. EXPLAINED IMPORTANCE TO PATIENT BUT PATIENT STILL REFUSING. NO SIGNS OF RESPIRATORY DISTRESS NOTED. PRIMARY NURSE IS AWARE. WILL CONTINUE TO MONITOR PATIENT.
[2022-08-06] MEDS: ATORVASTATIN 40 MG TABLET PO SCH (22:11)
[2022-08-06] MEDS: GABAPENTIN 100 MG CAPSULE PO SCH (22:11)
[2022-08-06] MEDS: *INSULIN REGULAR(HUMULIN R)HUM 100 UNIT/ML VIAL SQ PRN (22:19)
[2022-08-07] VITALS: BP 130/72
[2022-08-07] MEDS: IPRATROPIUM NEB FS 0.5 MG/2.5 ML AMPUL.NEB NEB SCH ×4 (03:05→16:09)
[2022-08-07 04:00] VITALS: BP 117/66
[2022-08-07] MEDS: METRONIDAZOLE 500 MG TABLET PO SCH ×2 (04:55→12:00)
[2022-08-07] MEDS: BLOOD SUGAR DIAGNOSTIC 1 EACH STRIP VI SCH ×3 (06:37→16:33)
[2022-08-07] MEDS: INSULIN REGULAR, HUMAN 100 UNIT/ML 3 ML VIAL SQ PRN (06:39)
--- NOTE | 2022-08-07 06:54 | NUR ---
noc rn closing note patient in bed with eyes closed, easy to arouse. no s/s of apparent distress on 2lpm of o2 via nc. denies pain at this time. reading nsr throughout shift. DU PICC running TKO of NS. all needs attended. all scheduled medications administered. call light within reach. safety in place. will endorse to morning shit rn for continuity of patient care.
[2022-08-07 06:57] LABS: BASOPHILS # (AUTO) 0.2 K/uL (0.0-0.2); HEMATOCRIT 36 % (39-51); HEMOGLOBIN 10.9 g/dL (13.5-17.5); LYMPHOCYTES # (AUTO) 3.5 K/uL (0.8-4.8); LYMPHOCYTES % (AUTO) 20.9 % (20.0-44.0); MEAN CORPUSCULAR HGB CONC 31 g/dl (31.0-36.0); MEAN CORPUSCULAR VOLUME 84 fL (80-96); MONOCYTES # (AUTO) 1.5 K/uL (0.1-1.30); MONOCYTES % (AUTO) 9.3 % (2.0-12.0); NEUTROPHILS # (AUTO) 10.9 K/uL (1.8-8.9); NEUTROPHILS % (AUTO) 65.8 % (43.0-81.0); PLATELET COUNT (AUTO) 321 K/uL (150-450); RED BLOOD CELL COUNT(AUTO) 4.24 MIL/uL (4.5-6.0); WHITE BLOOD COUNT (AUTO) 16.5 K/uL (4.3-11.0)
[2022-08-07 07:19] LABS: CALCIUM, SERUM 8.2 mg/dL (8.5-10.1); CREATININE 1.5 mg/dL (0.6-1.3); POTASSIUM 3.5 mmol/L (3.5-5.1)
[2022-08-07 08:00] VITALS: BP 135/75
--- NOTE | 2022-08-07 08:00 | NUR ---
DISTRICT OPERATIONS MANAGER OPENING NOTES: PT IN BED, ASLEEP BUT EASILY ROUSED, A/O X4. ON 2L O2 VIA NC, TOLERATING WELL, RESPIRATIONS EVEN AND UNLABORED. TELE MONITOR SR. IV ACCESS ON DU PICC LINE, KVO NS @ 10ML/HR, DRESSING C/D/I. MICHELLE CATH IN PLACE DRAINING CLEAR, YELLOW URINE. HOB SLIGHTLY ELEVATED. ALL SAFETY MEASURES IN PLACE, BED IN LOW LOCKED POSITION. CALL LIGHT AND TABLE WITHIN REACH. PLAN OF CARE CONTINUE.
[2022-08-07] MEDS: FUROSEMIDE 40 MG/4 ML VIAL IV SCH (08:13)
[2022-08-07] MEDS: DULOXETINE HCL 30 MG CAPSULE.DR PO SCH (08:14)
[2022-08-07] MEDS: LACOSAMIDE 50 MG TABLET PO SCH (08:14)
[2022-08-07] MEDS: CLOPIDOGREL BISULFATE 75 MG TABLET PO SCH (08:14)
[2022-08-07] MEDS: QUETIAPINE FUMARATE 25 MG TABLET PO SCH (08:14)
[2022-08-07] MEDS: DIVALPROEX SODIUM 125 MG CAP.SPRINK PO SCH ×2 (08:14→16:14)
[2022-08-07] MEDS: LINEZOLID 600 MG TABLET PO SCH (08:14)
[2022-08-07] MEDS: BENAZEPRIL HCL 10 MG TABLET PO SCH (08:15)
[2022-08-07] MEDS: SENNOSIDES 8.6 MG TABLET PO SCH ×2 (08:18→16:15)
[2022-08-07] MEDS: POLYETHYLENE GLYCOL 3350 17 GM POWD.PACK PO SCH ×2 (08:18→16:15)
[2022-08-07] MEDS: THERAHONEY GEL 1.5 OZ TUBE TP SCH (08:19)
[2022-08-07] MEDS: GENTAMICIN 0.1% OINT 15 GM TUBE TP SCH (08:19)
[2022-08-07] MEDS: DAKINS QUARTER STRENGTH (0.125%) 480 ML BOTTLE TOP SCH (08:19)
--- NOTE | 2022-08-07 08:45 | NUR ---
RECEIVED A CALL FROM LAB, AMIKACIN TROUGH RESULTS 10.1, INFORMED PHARMACY, PER PHARMACIST, GIVE THE 10AM AMIKACIN DOSE AND THEY WILL CHANGED THE NEXT DOSE, NOTED AND CARRIED OUT, PLAN OF CARE CONTINUE.
[2022-08-07] MEDS: AMIKACIN 500 MG in IV D5W 100 ML IV SCH (09:09)
[2022-08-07] MEDS ORDERED: FURO-144 PO (09:51)
[2022-08-07] MEDS ORDERED: Linezolid PO (09:51)
--- NOTE | 2022-08-07 10:28 | NUR ---
NOTED NO IV ABX ON DISCHARGE, INFORMED DR. CURRY, WITH ORDER TO D/C RIGHT UPPER ARM PICC LINE PRIOR TO DISCHARGE NOTED AND CARRIED OUT. PLAN OF CARE CONTINUE.
--- NOTE | 2022-08-07 10:59 | NUR ---
PATIENT STATED HE IS MISSING 2 CHARGERS, 1 APPLE WATCH AND WHEELCHAIR, CHECKED ALL THE DRAWERS, CALLED ICU, ASKED ICU NURSES, UNABLE TO FIND THE BELONGINGS, INFORMED CHARGE NURSE AND COMPLETED A INCIDENT REPORT.
--- NOTE | 2022-08-07 11:30 | NUR ---
CALLED [facility], SPOKE TO LEON RN, GAVE REPORT ABOUT DISCHARGE SUMMARY INSTRUCTIONS, CONFIRMED UNDERSTANDING.
[2022-08-07 12:00] VITALS: BP 137/75
--- NOTE | 2022-08-07 15:51 | NUR ---
PERICARE DONE AND WOUND CARE DONE, NOTED XLARGE SOFT BM.
[2022-08-07 16:00] VITALS: BP 136/73
--- NOTE | 2022-08-07 18:08 | NUR ---
REMOVED RIGHT UPPER ARM PICC LINE PER MD'S ORDER, PATIENT TOLERATED.
--- NOTE | 2022-08-07 18:12 | NUR ---
PATIENT LEFT VIA GURNEY WITH 2 EMT'S WITH FAMILY MEMBER STABLE.
[2022-08-08] MEDS ORDERED: AMIKACIN 500 MG in IV D5W 100 ML IV SCH (08:00)
== END 2022-08-07 20:00 | DRG 182 ==
LOC: ER 15:12 → MED 20:13 → ICU 07-28 08:07 → TELE1 08-01 15:33 → ICU 08-04 16:44 → TELE1 08-04 23:13
PROVIDERS: ADMIT Nurse Practitioner Acute Care; ATTEND Internal Medicine
PROC: 0Y6N0ZF Detachment at Left Foot, Partial 5th Ray, Open Approach (ICD-10-PCS; principal; 2022-07-28)
PROC: 02HV33Z Insertion of Infusion Device into Superior Vena Cava, Percutaneous Approach (ICD-10-PCS; 2022-07-28)
PROC: B548ZZA Ultrasonography of Superior Vena Cava, Guidance (ICD-10-PCS; 2022-07-28)
PROC: 0W993ZX Drainage of Right Pleural Cavity, Percutaneous Approach, Diagnostic (ICD-10-PCS; 2022-07-30)
PROC: 0W993ZX Drainage of Right Pleural Cavity, Percutaneous Approach, Diagnostic (ICD-10-PCS; 2022-08-03)
PROC: 047S3ZZ Dilation of Left Posterior Tibial Artery, Percutaneous Approach (ICD-10-PCS; 2022-08-04)
PROC: 047U3ZZ Dilation of Left Peroneal Artery, Percutaneous Approach (ICD-10-PCS; 2022-08-04)
PROC: 0KBW0ZZ Excision of Left Foot Muscle, Open Approach (ICD-10-PCS; 2022-08-04)
PROC: B410YZZ Fluoroscopy of Abdominal Aorta using Other Contrast (ICD-10-PCS; 2022-08-04)
PROC: B41GYZZ Fluoroscopy of Left Lower Extremity Arteries using Other Contrast (ICD-10-PCS; 2022-08-04)
DX: E11.52 Type 2 diabetes mellitus with diabetic peripheral angiopathy with gangrene (principal); N17.0 Acute kidney failure with tubular necrosis; G93.41 Metabolic encephalopathy; E43 Unspecified severe protein-calorie malnutrition; J96.01 Acute respiratory failure with hypoxia; J96.02 Acute respiratory failure with hypercapnia; I50.33 Acute on chronic diastolic (congestive) heart failure; I70.268 Atherosclerosis of native arteries of extremities with gangrene, other extremity; L89.153 Pressure ulcer of sacral region, stage 3; B35.1 Tinea unguium; J98.11 Atelectasis; E11.69 Type 2 diabetes mellitus with other specified complication; L03.116 Cellulitis of left lower limb; E88.09 Other disorders of plasma-protein metabolism, not elsewhere classified; I13.0 Hypertensive heart and chronic kidney disease with heart failure and stage 1 through stage 4 chronic kidney disease, or unspecified chronic kidney disease; J90 Pleural effusion, not elsewhere classified; E11.42 Type 2 diabetes mellitus with diabetic polyneuropathy; L02.612 Cutaneous abscess of left foot; M86.8X7 Other osteomyelitis, ankle and foot; N39.0 Urinary tract infection, site not specified; Z20.822 Contact with and (suspected) exposure to COVID-19; L97.529 Non-pressure chronic ulcer of other part of left foot with unspecified severity; N18.9 Chronic kidney disease, unspecified; L98.493 Non-pressure chronic ulcer of skin of other sites with necrosis of muscle; Z79.4 Long term (current) use of insulin; Z79.84 Long term (current) use of oral hypoglycemic drugs; Z79.51 Long term (current) use of inhaled steroids; Z79.899 Other long term (current) drug therapy; I89.0 Lymphedema, not elsewhere classified; L30.9 Dermatitis, unspecified; I87.8 Other specified disorders of veins; E11.22 Type 2 diabetes mellitus with diabetic chronic kidney disease; E11.621 Type 2 diabetes mellitus with foot ulcer; E78.5 Hyperlipidemia, unspecified; B96.89 Other specified bacterial agents as the cause of diseases classified elsewhere; Z68.41 Body mass index [BMI] 40.0-44.9, adult; B35.3 Tinea pedis; E66.01 Morbid (severe) obesity due to excess calories; D64.9 Anemia, unspecified; G47.33 Obstructive sleep apnea (adult) (pediatric); Z91.199 Patient's noncompliance with other medical treatment and regimen due to unspecified reason; G40.909 Epilepsy, unspecified, not intractable, without status epilepticus
CPT/HCPCS: 31720; 36246; 36415; 36600; 37232; 71045-TC; 73630-TC; 75625; 80048-TC; 80076-TC; 80150; 80202-TC; 81001; 82803-TC; 82962-TC; 83605-TC; 83615-TC; 83735-TC; 83880; 84100-TC; 84478-TC; 84484-TC; 85025-TC; 85347; 85610-TC; 85730-TC; 86850-TC; 87040-TC; 87081-TC; 87086-TC; 87102-TC; 88108-TC; 88305-TC; 88311-TC; 89051-TC; 92526; 92611-TC; 93307-TC; 93970-TC; 94002-TC; 94003-TC; 94760-TC; 94799-TC; 97112-TC; 97530-TC; A4223; A6253; A6403; C1725; C1726; C1769; C1887; C1894; C9803; G0378; G0500; J0278; J0692; J1644; J1815; J1940; J2185; J2250; J2370; J2405; J2704; J3010; J3370; J3475; J3490; J7030; J7050; J7060; Q9967

== ENCOUNTER 2023-04-12 23:46 | Inpatient (IN) | payer OTHER ==
[~2023-04-12] VITALS: Ht 182.9 cm; Wt 130.6 kg
[~2023-04-12 23:46] MED LIST: ACET-2605 PO; ALBU8.5H8 IH; ATOR40TA PO; BENA10TA74 PO; BISA5TAB10 PO; DIVA-76 PO; DIVA-78 PO; DULO30CA52 PO; FURO-144 PO; GABA-532 PO; INSU100V36 SQ; INSU100V7 SQ; LACO100T2 PO; Linezolid PO; METF-440 PO; POLY17PO4 PO; QUET25TA PO; SENN-261 PO
[2023-04-13 00:45] LABS: BASOPHILS # (AUTO) 0.1 K/uL (0.0-0.2); BASOPHILS % (AUTO) 0.9 % (0.0-2.0); EOSINOPHILS # (AUTO) 0.6 K/uL (0.0-0.7); EOSINOPHILS % (AUTO) 4.4 % (0.0-6.0); HEMATOCRIT 35 % (39-51); HEMOGLOBIN 11.3 g/dL (13.5-17.5); LYMPHOCYTES # (AUTO) 3.1 K/uL (0.8-4.8); MEAN CORPUSCULAR HEMOGLOBIN 25 PG (26.0-33.0); MEAN CORPUSCULAR HGB CONC 32 g/dl (31.0-36.0); MEAN CORPUSCULAR VOLUME 79 fL (80-96); MONOCYTES # (AUTO) 1.5 K/uL (0.1-1.30); MONOCYTES % (AUTO) 11.1 % (2.0-12.0); NEUTROPHILS # (AUTO) 8.6 K/uL (1.8-8.9); NEUTROPHILS % (AUTO) 61.6 % (43.0-81.0); PLATELET COUNT (AUTO) 258 K/uL (150-450); RED BLOOD CELL COUNT(AUTO) 4.44 MIL/uL (4.5-6.0); RED CELL DISTRIBUTION WIDTH 18.4 % (11.5-15.0); WHITE BLOOD COUNT (AUTO) 13.9 K/uL (4.3-11.0)
[2023-04-13 00:52] LABS: CALCIUM, SERUM 8.3 mg/dL (8.5-10.1); CREATININE 2.7 mg/dL (0.6-1.3); POTASSIUM 3.3 mmol/L (3.5-5.1)
[2023-04-13 00:57] LABS: INR 1.17 (0.91-1.10); PARTIAL THROMBOPLASTIN TIME 32.1 SEC (24.3-34.3); PROTHROMBIN TIME 12.3 SECS (9.2-11.1)
[2023-04-13 01:06] LABS: APPEARANCE,URINE CLOUDY (CLEAR); BILIRUBIN,URINE NEGATIVE (NEGATIVE); BLOOD, URINE 3+ Ery/uL (NEGATIVE); COLOR,URINE YELLOW (YELLOW); KETONES,URINE NEGATIVE (NEGATIVE); LEUKOCYTE ESTERASE ,URINE 3+ (NEGATIVE); NITRITE, URINE NEGATIVE (NEGATIVE); PH,URINE 5.5 (5.0-8.0); PROTEIN,URINE 2+ mg/dl (NEGATIVE); UGLUCOSE NEGATIVE (NEGATIVE); UROBILINOGEN,URINE 0.2 EU/dL (0.2)
[2023-04-13] MEDS ORDERED: IV NS 0.9% 1,000 ML BAG IV ONE (01:30)
[2023-04-13] MEDS ORDERED: CEFTRIAXONE 1GM BAG (ER ONLY) 1 GM/50 ML PIGGYBACK IV ONE (01:30)
[2023-04-13] MEDS ORDERED: CEFTRIAXONE 1GM BAG (ER ONLY) 50 ML IV ONE (01:34)
[2023-04-13 01:52] LABS: ADD URINE CULTURE YES; BACTERIA,URINE 4+ /HPF (None Seen); MUCUS,URINE Moderate /LPF (None Seen); RBC,URINE 21-50 /HPF (0-2); SQUAMOUS EPITHELIAL CELL,UR None Seen /HPF (None Seen); WBC,URINE TOO NUMEROUS TO COUN /HPF (0-3)
[2023-04-13] MEDS ORDERED: MORPHINE SULFATE INJ 2 MG/ML DISP.SYRIN IV ONE (02:00)
[2023-04-13] MEDS ORDERED: MORPHINE SULFATE INJ 4 MG/ML DISP.SYRIN ONE (02:09)
[2023-04-13] MEDS ORDERED: POTASSIUM CHLORIDE 20 MEQ TAB.PRT.SR PO ONE (06:00)
[2023-04-13] MEDS ORDERED: DEXTROSE 50%-WATER 50 ML DISP.SYRIN IV PRN (06:00)
[2023-04-13] MEDS ORDERED: BISACODYL (5 MG) 5 MG TABLET.DR PO PRN (06:00)
[2023-04-13] MEDS ORDERED: ONDANSETRON HCL/PF 4 MG/2 ML VIAL IVP PRN (06:00)
[2023-04-13] MEDS ORDERED: ACETAMINOPHEN 325 MG TABLET PO PRN (06:00)
[2023-04-13] MEDS ORDERED: ALBUTEROL FS 2.5 MG/0.5 ML VIAL.NEB HHN PRN (07:00)
[2023-04-13] MEDS: BLOOD SUGAR DIAGNOSTIC 1 EACH STRIP IN SCH ×4 (07:30→21:43)
[2023-04-13] MEDS ORDERED: DIVALPROEX SODIUM 250 MG TABLET.DR PO SCH (08:00)
[2023-04-13] MEDS: POLYETHYLENE GLYCOL 3350 17 GM POWD.PACK PO SCH ×2 (09:00→17:19)
[2023-04-13] MEDS ORDERED: LACOSAMIDE ORAL SOLN 50 MG/5 ML UDC PO SCH (09:00)
[2023-04-13] MEDS ORDERED: QUETIAPINE FUMARATE 25 MG TABLET PO SCH (09:00)
[2023-04-13] MEDS ORDERED: DULOXETINE HCL 30 MG CAPSULE.DR PO SCH (09:00)
[2023-04-13] MEDS: SENNOSIDES 8.6 MG TABLET PO SCH ×2 (09:00→17:19)
[2023-04-13] MEDS ORDERED: MAG30ORA PO (09:48)
[2023-04-13] MEDS ORDERED: TAMS-12 PO (09:48)
[2023-04-13] MEDS ORDERED: LOPE-195 PO (09:48)
[2023-04-13] MEDS ORDERED: AMLO10TA4 PO (09:48)
[2023-04-13] MEDS ORDERED: HYDR28.32 TP (09:48)
[2023-04-13] MEDS ORDERED: HYDR-4209 PO (09:48)
[2023-04-13] MEDS ORDERED: CADE40GE2 TP (09:48)
[2023-04-13] MEDS ORDERED: FERR325T23 PO (09:48)
[2023-04-13] MEDS ORDERED: ALBU2.5V38 IH (09:48)
[2023-04-13] MEDS ORDERED: LINA5TAB PO (09:48)
[2023-04-13] MEDS ORDERED: LOSA25TA27 PO (09:48)
[2023-04-13] MEDS ORDERED: ACET-868 PO (09:48)
[2023-04-13] MEDS ORDERED: ASCO-352 PO (09:48)
[2023-04-13] MEDS ORDERED: LOSA50TA39 PO (09:48)
[2023-04-13] MEDS ORDERED: MAGN400O6 PO (09:48)
[2023-04-13] MEDS ORDERED: MULT-447 PO (09:48)
[2023-04-13] MEDS ORDERED: FURO-144 PO (09:48)
[2023-04-13] MEDS ORDERED: AMIN30LI2 PO (09:48)
[2023-04-13] MEDS ORDERED: HYDR-4303 PO (09:48)
[2023-04-13] MEDS ORDERED: ALBUTEROL FS 2.5 MG/3 ML VIAL.NEB IH PRN (15:00)
[2023-04-13 16:11] VITALS: BP 115/67; TEMP 97.1; O2SAT 97
[2023-04-13] MEDS: ENOXAPARIN SODIUM 40 MG/0.4 ML DISP.SYRIN SQ SCH (16:13)
[2023-04-13] MEDS: HYDROCODONE/APAP 5/325MG TABLET PO PRN (16:14)
[2023-04-13] MEDS: IV NS 0.9% 1,000 ML IV PRN (16:47)
[2023-04-13] MEDS: INSULIN REGULAR, HUMAN 100 UNIT/ML 3 ML VIAL SQ PRN ×2 (17:16→21:43)
[2023-04-13] MEDS: PROSOURCE / PROSTAT (PYXIS) 30 ML UDC PO SCH (17:19)
[2023-04-13] MEDS ORDERED: DIVALPROEX SODIUM 500 MG TABLET.DR PO SCH (18:00)
[2023-04-13] MEDS: CEFEPIME 1 GM in IV D5W 50 ML IV SCH (19:03)
[2023-04-13 20:00] VITALS: BP_SYST 114; BP_SYST 151; BP_DIAS 100; BP_DIAS 69; TEMP 97.8; TEMP 99.1; O2SAT 95; O2SAT 96
[2023-04-13] MEDS ORDERED: VANCOMYCIN 1.5 GM in IV D5W 500ml IV ONE (20:00)
[2023-04-13] MEDS ORDERED: ATORVASTATIN 40 MG TABLET PO SCH (22:00)
[2023-04-13] MEDS ORDERED: GABAPENTIN 300 MG CAPSULE PO SCH (22:00)
[2023-04-13] MEDS ORDERED: INSULIN GLARGINE, 100 UNIT/ML CARTRIDGE SQ SCH (22:00)
[2023-04-14] MEDS ORDERED: CEFTRIAXONE 1 G in IV D5W 50 ML IV SCH (01:00)
[2023-04-14] MEDS: IV NS 0.9% 1,000 ML IV PRN (06:15)
[2023-04-14 06:21] LABS: BASOPHILS # (AUTO) 0.1 K/uL (0.0-0.2); BASOPHILS % (AUTO) 0.7 % (0.0-2.0); EOSINOPHILS # (AUTO) 0.4 K/uL (0.0-0.7); EOSINOPHILS % (AUTO) 3.1 % (0.0-6.0); HEMATOCRIT 32 % (39-51); HEMOGLOBIN 10.3 g/dL (13.5-17.5); LYMPHOCYTES # (AUTO) 2.3 K/uL (0.8-4.8); LYMPHOCYTES % (AUTO) 17.7 % (20.0-44.0); MEAN CORPUSCULAR HEMOGLOBIN 26 PG (26.0-33.0); MEAN CORPUSCULAR HGB CONC 33 g/dl (31.0-36.0); MEAN CORPUSCULAR VOLUME 79 fL (80-96); MONOCYTES # (AUTO) 1.4 K/uL (0.1-1.30); MONOCYTES % (AUTO) 10.5 % (2.0-12.0); NEUTROPHILS # (AUTO) 8.8 K/uL (1.8-8.9); PLATELET COUNT (AUTO) 309 K/uL (150-450); RED BLOOD CELL COUNT(AUTO) 4.01 MIL/uL (4.5-6.0); RED CELL DISTRIBUTION WIDTH 17.7 % (11.5-15.0)
[2023-04-14] MEDS: BLOOD SUGAR DIAGNOSTIC 1 EACH STRIP IN SCH ×4 (06:33→22:00)
[2023-04-14] MEDS: INSULIN REGULAR, HUMAN 100 UNIT/ML 3 ML VIAL SQ PRN (06:33)
[2023-04-14 06:53] LABS: ALBUMIN 1.6 g/dL (3.4-5.0); BILIRUBIN,TOTAL 0.5 mg/dL (0.2-1.0); CALCIUM, SERUM 8.1 mg/dL (8.5-10.1); CREATININE 2.4 mg/dL (0.6-1.3); MAGNESIUM 1.9 mg/dL (1.8-2.4); PHOSPHORUS 4.1 mg/dL (2.5-4.9); POTASSIUM 3.3 mmol/L (3.5-5.1)
[2023-04-14 07:00] VITALS: BP 133/75; TEMP 98.4; O2SAT 93
[2023-04-14 07:09] LABS: THYROID STIMULATING HORMONE 3.712 uIU/mL (0.358-3.74)
[2023-04-14] MEDS: ASCORBIC ACID 500 MG TABLET PO SCH (08:44)
[2023-04-14] MEDS: LINAGLIPTIN 5 MG TABLET PO SCH (08:44)
[2023-04-14] MEDS: FERROUS SULFATE (325 MG) 325 MG/TAB TABLET PO SCH (08:44)
[2023-04-14] MEDS: MULTIVIT W/MINERALS 1 TAB TABLET PO SCH (08:45)
[2023-04-14] MEDS: TAMSULOSIN 0.4 MG CAP.SR.24H PO SCH (08:45)
[2023-04-14] MEDS: POLYETHYLENE GLYCOL 3350 17 GM POWD.PACK PO SCH ×2 (08:45→16:27)
[2023-04-14] MEDS: SENNOSIDES 8.6 MG TABLET PO SCH ×2 (08:45→16:27)
[2023-04-14] MEDS: ENOXAPARIN SODIUM 40 MG/0.4 ML DISP.SYRIN SQ SCH (08:46)
[2023-04-14] MEDS: PROSOURCE / PROSTAT (PYXIS) 30 ML UDC PO SCH ×2 (08:47→16:28)
[2023-04-14 10:39] LABS: CREATININE, URINE 77.2 MG/DL (30.0-125.0); URINE TOTAL PROTEIN 158.5 mg/dL (0-11.9)
[2023-04-14] MEDS ORDERED: POTASSIUM CHLORIDE 10 MEQ TABLET.SA PO ONE (11:00)
[2023-04-14] MEDS ORDERED: LORAZEPAM 1 MG TABLET PO PRN (13:00)
[2023-04-14 16:00] VITALS: BP 109/59; TEMP 98.6; O2SAT 94
[2023-04-14] MEDS: HYDROCODONE/APAP 5/325MG TABLET PO PRN (16:22)
[2023-04-14] MEDS: THERAHONEY GEL 1.5 OZ TUBE TP SCH ×2 (17:00→17:17)
[2023-04-14] MEDS: CLOTRIMAZOLE 1% 15 GM TUBE TP SCH (17:17)
[2023-04-14] MEDS: FLUOXETINE HCL 20 MG CAPSULE PO SCH (17:20)
[2023-04-14] MEDS: CEFEPIME 1 GM in IV D5W 50 ML IV SCH (18:36)
[2023-04-14 20:00] VITALS: BP 118/67; TEMP 97.7; O2SAT 95
[2023-04-14] MEDS ORDERED: VANCOMYCIN 1.25 GM in IV D5W 250 ML IV SCH (20:00)
[2023-04-15 05:58] LABS: BASOPHILS # (AUTO) 0.1 K/uL (0.0-0.2); EOSINOPHILS # (AUTO) 0.7 K/uL (0.0-0.7); EOSINOPHILS % (AUTO) 4.9 % (0.0-6.0); HEMATOCRIT 31 % (39-51); LYMPHOCYTES # (AUTO) 2.7 K/uL (0.8-4.8); LYMPHOCYTES % (AUTO) 18.5 % (20.0-44.0); MEAN CORPUSCULAR HEMOGLOBIN 26 PG (26.0-33.0); MEAN CORPUSCULAR HGB CONC 33 g/dl (31.0-36.0); MEAN CORPUSCULAR VOLUME 78 fL (80-96); MONOCYTES # (AUTO) 1.4 K/uL (0.1-1.30); MONOCYTES % (AUTO) 10.1 % (2.0-12.0); NEUTROPHILS # (AUTO) 9.4 K/uL (1.8-8.9); NEUTROPHILS % (AUTO) 65.5 % (43.0-81.0); PLATELET COUNT (AUTO) 358 K/uL (150-450); RED CELL DISTRIBUTION WIDTH 18.5 % (11.5-15.0); WHITE BLOOD COUNT (AUTO) 14.3 K/uL (4.3-11.0)
[2023-04-15 06:06] LABS: PTH, INTACT 33 pg/mL (15-65)
[2023-04-15 06:08] LABS: CREATININE 2.1 mg/dL (0.6-1.3); PHOSPHORUS 4.1 mg/dL (2.5-4.9); POTASSIUM 3.7 mmol/L (3.5-5.1)
[2023-04-15] MEDS: HYDROCODONE/APAP 5/325MG TABLET PO PRN ×2 (07:19→18:33)
[2023-04-15] MEDS: BLOOD SUGAR DIAGNOSTIC 1 EACH STRIP IN SCH ×4 (07:30→21:49)
[2023-04-15] MEDS: POLYETHYLENE GLYCOL 3350 17 GM POWD.PACK PO SCH ×2 (08:47→16:23)
[2023-04-15] MEDS: LINAGLIPTIN 5 MG TABLET PO SCH (08:48)
[2023-04-15] MEDS: FLUOXETINE HCL 20 MG CAPSULE PO SCH (08:48)
[2023-04-15] MEDS: ENOXAPARIN SODIUM 40 MG/0.4 ML DISP.SYRIN SQ SCH (08:48)
[2023-04-15] MEDS: SENNOSIDES 8.6 MG TABLET PO SCH ×2 (08:48→16:23)
[2023-04-15] MEDS: MULTIVIT W/MINERALS 1 TAB TABLET PO SCH (08:48)
[2023-04-15] MEDS: FERROUS SULFATE (325 MG) 325 MG/TAB TABLET PO SCH (08:48)
[2023-04-15] MEDS: ASCORBIC ACID 500 MG TABLET PO SCH (08:49)
[2023-04-15] MEDS: TAMSULOSIN 0.4 MG CAP.SR.24H PO SCH (08:49)
[2023-04-15] MEDS: THERAHONEY GEL 1.5 OZ TUBE TP SCH ×2 (08:51→08:52)
[2023-04-15] MEDS: CLOTRIMAZOLE 1% 15 GM TUBE TP SCH ×2 (08:52→16:23)
[2023-04-15] MEDS: PROSOURCE / PROSTAT (PYXIS) 30 ML UDC PO SCH ×2 (08:59→16:23)
[2023-04-15 10:08] VITALS: BP 142/75; TEMP 98.1; O2SAT 95
[2023-04-15 12:07] LABS: *SPE A/G RATIO 0.5 (0.7-1.7); *SPE ALPHA-1-GLOBULIN 0.4 g/dL (0.0-0.4); *SPE ALPHA-2-GLOBULIN 0.8 g/dL (0.4-1.0); *SPE GLOBULIN, TOTAL 4.3 g/dL (2.2-3.9); *SPE M-SPIKE Not Observed g/dL (Not Observed); *SPE PROTEIN TOTAL 6.3 g/dL (6.0-8.5); *SPEGAMMA GLOBULIN 2.1 g/dL (0.4-1.8)
[2023-04-15 16:00] VITALS: BP 151/87; TEMP 98.4; O2SAT 94
[2023-04-15] MEDS: CEFEPIME 1 GM in IV D5W 50 ML IV SCH (18:12)
[2023-04-15 20:00] VITALS: BP 116/55; TEMP 98.8; O2SAT 94
[2023-04-15] MEDS: VANCOMYCIN 1.5 GM in IV D5W 500ml IV SCH (20:44)
[2023-04-16] MEDS: BLOOD SUGAR DIAGNOSTIC 1 EACH STRIP IN SCH ×4 (06:28→21:05)
[2023-04-16 06:30] LABS: CALCIUM, SERUM 8.2 mg/dL (8.5-10.1); CREATININE 1.8 mg/dL (0.6-1.3); PHOSPHORUS 3.8 mg/dL (2.5-4.9); POTASSIUM 3.8 mmol/L (3.5-5.1)
[2023-04-16 06:37] LABS: BASOPHILS # (AUTO) 0.1 K/uL (0.0-0.2); BASOPHILS % (AUTO) 0.9 % (0.0-2.0); EOSINOPHILS # (AUTO) 0.8 K/uL (0.0-0.7); EOSINOPHILS % (AUTO) 5.6 % (0.0-6.0); HEMATOCRIT 32 % (39-51); HEMOGLOBIN 10.5 g/dL (13.5-17.5); LYMPHOCYTES # (AUTO) 2.7 K/uL (0.8-4.8); LYMPHOCYTES % (AUTO) 19.5 % (20.0-44.0); MEAN CORPUSCULAR HEMOGLOBIN 26 PG (26.0-33.0); MEAN CORPUSCULAR HGB CONC 33 g/dl (31.0-36.0); MEAN CORPUSCULAR VOLUME 79 fL (80-96); NEUTROPHILS # (AUTO) 9.4 K/uL (1.8-8.9); PLATELET COUNT (AUTO) 401 K/uL (150-450); RED BLOOD CELL COUNT(AUTO) 4.06 MIL/uL (4.5-6.0); RED CELL DISTRIBUTION WIDTH 18.7 % (11.5-15.0)
[2023-04-16 08:00] VITALS: BP 146/73; TEMP 98.2; O2SAT 94
[2023-04-16] MEDS: LINAGLIPTIN 5 MG TABLET PO SCH (08:59)
[2023-04-16] MEDS: TAMSULOSIN 0.4 MG CAP.SR.24H PO SCH (08:59)
[2023-04-16] MEDS: FERROUS SULFATE (325 MG) 325 MG/TAB TABLET PO SCH (08:59)
[2023-04-16] MEDS: POLYETHYLENE GLYCOL 3350 17 GM POWD.PACK PO SCH ×2 (08:59→16:42)
[2023-04-16] MEDS: SENNOSIDES 8.6 MG TABLET PO SCH ×2 (08:59→16:42)
[2023-04-16] MEDS: ENOXAPARIN SODIUM 40 MG/0.4 ML DISP.SYRIN SQ SCH (08:59)
[2023-04-16] MEDS: ASCORBIC ACID 500 MG TABLET PO SCH (08:59)
[2023-04-16] MEDS: PROSOURCE / PROSTAT (PYXIS) 30 ML UDC PO SCH ×2 (09:00→16:42)
[2023-04-16] MEDS: MULTIVIT W/MINERALS 1 TAB TABLET PO SCH (09:00)
[2023-04-16] MEDS: FLUOXETINE HCL 20 MG CAPSULE PO SCH (09:00)
[2023-04-16] MEDS: THERAHONEY GEL 1.5 OZ TUBE TP SCH ×2 (09:08)
[2023-04-16] MEDS: CLOTRIMAZOLE 1% 15 GM TUBE TP SCH ×2 (09:08→17:14)
[2023-04-16 16:00] VITALS: BP 125/68; TEMP 98.6; O2SAT 96
[2023-04-16] MEDS: CEFEPIME 1 GM in IV D5W 50 ML IV SCH (18:22)
[2023-04-16 20:00] VITALS: BP 126/63; TEMP 99.2; O2SAT 97
[2023-04-16] MEDS: VANCOMYCIN 1.5 GM in IV D5W 500ml IV SCH (20:50)
[2023-04-17 05:50] LABS: BASOPHILS # (AUTO) 0.1 K/uL (0.0-0.2); EOSINOPHILS # (AUTO) 0.7 K/uL (0.0-0.7); EOSINOPHILS % (AUTO) 4.9 % (0.0-6.0); HEMATOCRIT 32 % (39-51); HEMOGLOBIN 10.6 g/dL (13.5-17.5); LYMPHOCYTES # (AUTO) 2.7 K/uL (0.8-4.8); LYMPHOCYTES % (AUTO) 18.7 % (20.0-44.0); MEAN CORPUSCULAR HEMOGLOBIN 26 PG (26.0-33.0); MEAN CORPUSCULAR HGB CONC 33 g/dl (31.0-36.0); MEAN CORPUSCULAR VOLUME 79 fL (80-96); MONOCYTES % (AUTO) 6.6 % (2.0-12.0); NEUTROPHILS # (AUTO) 10.1 K/uL (1.8-8.9); NEUTROPHILS % (AUTO) 68.8 % (43.0-81.0); PLATELET COUNT (AUTO) 449 K/uL (150-450); RED BLOOD CELL COUNT(AUTO) 4.07 MIL/uL (4.5-6.0); RED CELL DISTRIBUTION WIDTH 18.4 % (11.5-15.0); WHITE BLOOD COUNT (AUTO) 14.6 K/uL (4.3-11.0)
[2023-04-17] MEDS: BLOOD SUGAR DIAGNOSTIC 1 EACH STRIP IN SCH ×5 (06:13→21:02)
[2023-04-17 06:15] LABS: CALCIUM, SERUM 7.9 mg/dL (8.5-10.1); CREATININE 1.6 mg/dL (0.6-1.3); MAGNESIUM 2.3 mg/dL (1.8-2.4); PHOSPHORUS 4.3 mg/dL (2.5-4.9); POTASSIUM 4.2 mmol/L (3.5-5.1)
[2023-04-17 07:00] VITALS: BP 147/81; TEMP 97.8; O2SAT 95
[2023-04-17] MEDS: PROSOURCE / PROSTAT (PYXIS) 30 ML UDC PO SCH ×2 (09:36→17:17)
[2023-04-17] MEDS: POLYETHYLENE GLYCOL 3350 17 GM POWD.PACK PO SCH ×2 (09:37→17:17)
[2023-04-17] MEDS: TAMSULOSIN 0.4 MG CAP.SR.24H PO SCH (09:37)
[2023-04-17] MEDS: FLUOXETINE HCL 20 MG CAPSULE PO SCH (09:37)
[2023-04-17] MEDS: ASCORBIC ACID 500 MG TABLET PO SCH (09:37)
[2023-04-17] MEDS: MULTIVIT W/MINERALS 1 TAB TABLET PO SCH (09:38)
[2023-04-17] MEDS: FERROUS SULFATE (325 MG) 325 MG/TAB TABLET PO SCH (09:38)
[2023-04-17] MEDS: SENNOSIDES 8.6 MG TABLET PO SCH ×2 (09:38→17:17)
[2023-04-17] MEDS: LINAGLIPTIN 5 MG TABLET PO SCH (09:38)
[2023-04-17] MEDS: ENOXAPARIN SODIUM 40 MG/0.4 ML DISP.SYRIN SQ SCH (09:39)
[2023-04-17] MEDS: CLOTRIMAZOLE 1% 15 GM TUBE TP SCH ×2 (09:49→17:34)
[2023-04-17] MEDS: THERAHONEY GEL 1.5 OZ TUBE TP SCH ×2 (09:49→09:51)
[2023-04-17] MEDS: HYDROCODONE/APAP 5/325MG TABLET PO PRN (09:51)
[2023-04-17 16:00] VITALS: BP 133/66; TEMP 98.6; O2SAT 92
[2023-04-17] MEDS: CEFEPIME 1 GM in IV D5W 50 ML IV SCH (18:02)
[2023-04-17 20:00] VITALS: BP 130/66; TEMP 98.6; O2SAT 94
[2023-04-17] MEDS: VANCOMYCIN 1.5 GM in IV D5W 500ml IV SCH (20:52)
[2023-04-18] MEDS: BLOOD SUGAR DIAGNOSTIC 1 EACH STRIP IN SCH ×4 (06:09→22:00)
[2023-04-18 06:53] LABS: BASOPHILS # (AUTO) 0.2 K/uL (0.0-0.2); BASOPHILS % (AUTO) 0.9 % (0.0-2.0); EOSINOPHILS # (AUTO) 0.9 K/uL (0.0-0.7); EOSINOPHILS % (AUTO) 5.2 % (0.0-6.0); HEMATOCRIT 33 % (39-51); HEMOGLOBIN 10.8 g/dL (13.5-17.5); LYMPHOCYTES # (AUTO) 2.9 K/uL (0.8-4.8); LYMPHOCYTES % (AUTO) 16.8 % (20.0-44.0); MEAN CORPUSCULAR HEMOGLOBIN 26 PG (26.0-33.0); MEAN CORPUSCULAR HGB CONC 33 g/dl (31.0-36.0); MEAN CORPUSCULAR VOLUME 80 fL (80-96); MONOCYTES # (AUTO) 1.1 K/uL (0.1-1.30); MONOCYTES % (AUTO) 6.5 % (2.0-12.0); NEUTROPHILS # (AUTO) 12.2 K/uL (1.8-8.9); NEUTROPHILS % (AUTO) 70.6 % (43.0-81.0); PLATELET COUNT (AUTO) 480 K/uL (150-450); RED BLOOD CELL COUNT(AUTO) 4.15 MIL/uL (4.5-6.0); RED CELL DISTRIBUTION WIDTH 18.3 % (11.5-15.0); WHITE BLOOD COUNT (AUTO) 17.3 K/uL (4.3-11.0)
[2023-04-18 07:30] VITALS: BP 152/77; TEMP 98.2; O2SAT 96
[2023-04-18 07:34] LABS: CALCIUM, SERUM 8.6 mg/dL (8.5-10.1); CREATININE 1.6 mg/dL (0.6-1.3); MAGNESIUM 2.1 mg/dL (1.8-2.4); PHOSPHORUS 3.5 mg/dL (2.5-4.9); POTASSIUM 4.7 mmol/L (3.5-5.1)
[2023-04-18] MEDS: LINAGLIPTIN 5 MG TABLET PO SCH (08:16)
[2023-04-18] MEDS: ASCORBIC ACID 500 MG TABLET PO SCH (08:16)
[2023-04-18] MEDS: FERROUS SULFATE (325 MG) 325 MG/TAB TABLET PO SCH (08:16)
[2023-04-18] MEDS: POLYETHYLENE GLYCOL 3350 17 GM POWD.PACK PO SCH ×2 (08:16→17:00)
[2023-04-18] MEDS: MULTIVIT W/MINERALS 1 TAB TABLET PO SCH (08:16)
[2023-04-18] MEDS: FLUOXETINE HCL 20 MG CAPSULE PO SCH (08:16)
[2023-04-18] MEDS: TAMSULOSIN 0.4 MG CAP.SR.24H PO SCH (08:16)
[2023-04-18] MEDS: SENNOSIDES 8.6 MG TABLET PO SCH ×2 (08:17→17:00)
[2023-04-18] MEDS: ENOXAPARIN SODIUM 40 MG/0.4 ML DISP.SYRIN SQ SCH (08:20)
[2023-04-18] MEDS: HYDROCODONE/APAP 5/325MG TABLET PO PRN (08:31)
[2023-04-18] MEDS: THERAHONEY GEL 1.5 OZ TUBE TP SCH ×2 (08:33→09:19)
[2023-04-18] MEDS: CLOTRIMAZOLE 1% 15 GM TUBE TP SCH ×2 (08:33→16:59)
[2023-04-18 09:02] LABS: EOSINOPHILS % (MANUAL) 8 % (0-4); LYMPHOCYTES % (MANUAL) 14 % (16-48); MONOCYTES % (MANUAL) 8 % (0-11.0); MYELOCYTES % 2 % (0-0); NEUTROPHILS % (MANUAL) 68 (42-76); PLATELET ESTIMATE INCREASED
[2023-04-18] MEDS: PROSOURCE / PROSTAT (PYXIS) 30 ML UDC PO SCH ×2 (09:19→17:00)
[2023-04-18 16:00] VITALS: BP 156/80; TEMP 97.9; O2SAT 92
[2023-04-18] MEDS: CEFEPIME 1 GM in IV D5W 50 ML IV SCH (19:28)
[2023-04-18 20:00] VITALS: BP 135/62; TEMP 99; O2SAT 94
[2023-04-18] MEDS: VANCOMYCIN 1.5 GM in IV D5W 500ml IV SCH (21:04)
[2023-04-19 05:45] LABS: BASOPHILS # (AUTO) 0.2 K/uL (0.0-0.2); EOSINOPHILS % (AUTO) 6.4 % (0.0-6.0); HEMATOCRIT 34 % (39-51); HEMOGLOBIN 11.1 g/dL (13.5-17.5); LYMPHOCYTES # (AUTO) 3.1 K/uL (0.8-4.8); LYMPHOCYTES % (AUTO) 19.9 % (20.0-44.0); MEAN CORPUSCULAR HEMOGLOBIN 26 PG (26.0-33.0); MEAN CORPUSCULAR HGB CONC 33 g/dl (31.0-36.0); MEAN CORPUSCULAR VOLUME 81 fL (80-96); MONOCYTES % (AUTO) 6.4 % (2.0-12.0); NEUTROPHILS # (AUTO) 10.2 K/uL (1.8-8.9); NEUTROPHILS % (AUTO) 66.3 % (43.0-81.0); PLATELET COUNT (AUTO) 473 K/uL (150-450); RED BLOOD CELL COUNT(AUTO) 4.24 MIL/uL (4.5-6.0); RED CELL DISTRIBUTION WIDTH 18.5 % (11.5-15.0); WHITE BLOOD COUNT (AUTO) 15.4 K/uL (4.3-11.0)
[2023-04-19 05:55] LABS: CALCIUM, SERUM 8.6 mg/dL (8.5-10.1); CREATININE 1.4 mg/dL (0.6-1.3); MAGNESIUM 2.2 mg/dL (1.8-2.4); PHOSPHORUS 4.2 mg/dL (2.5-4.9); POTASSIUM 4.2 mmol/L (3.5-5.1)
[2023-04-19] MEDS: BLOOD SUGAR DIAGNOSTIC 1 EACH STRIP IN SCH ×4 (07:07→21:41)
[2023-04-19 07:30] VITALS: BP 149/76; TEMP 97.5; O2SAT 97
[2023-04-19] MEDS: SENNOSIDES 8.6 MG TABLET PO SCH ×2 (08:45→16:51)
[2023-04-19] MEDS: FLUOXETINE HCL 20 MG CAPSULE PO SCH (08:45)
[2023-04-19] MEDS: ENOXAPARIN SODIUM 40 MG/0.4 ML DISP.SYRIN SQ SCH (08:45)
[2023-04-19] MEDS: ASCORBIC ACID 500 MG TABLET PO SCH (08:45)
[2023-04-19] MEDS: MULTIVIT W/MINERALS 1 TAB TABLET PO SCH (08:45)
[2023-04-19] MEDS: TAMSULOSIN 0.4 MG CAP.SR.24H PO SCH (08:45)
[2023-04-19] MEDS: FERROUS SULFATE (325 MG) 325 MG/TAB TABLET PO SCH (08:45)
[2023-04-19] MEDS: POLYETHYLENE GLYCOL 3350 17 GM POWD.PACK PO SCH ×2 (08:48→16:48)
[2023-04-19] MEDS: LINAGLIPTIN 5 MG TABLET PO SCH (08:48)
[2023-04-19] MEDS: CLOTRIMAZOLE 1% 15 GM TUBE TP SCH ×2 (08:50→16:49)
[2023-04-19] MEDS: THERAHONEY GEL 1.5 OZ TUBE TP SCH ×2 (08:50)
[2023-04-19] MEDS: PROSOURCE / PROSTAT (PYXIS) 30 ML UDC PO SCH ×2 (08:51→16:48)
[2023-04-19] MEDS ORDERED: SILVER NITRATE APPLICATOR 1 EA BOX TP STA (11:29)
[2023-04-19] MEDS ORDERED: LIDOCAINE 1%-EPI 1:100,000 20 ML VIAL TP STA (11:29)
[2023-04-19] MEDS ORDERED: VITAMINS A AND D 56.7 GM TUBE TP PRN (15:00)
[2023-04-19 16:00] VITALS: BP 160/86; TEMP 98.4; O2SAT 97
[2023-04-19] MEDS: IV NS 0.9% 1,000 ML IV PRN (17:38)
[2023-04-19] MEDS: CEFEPIME 1 GM in IV D5W 50 ML IV SCH (19:38)
[2023-04-19] MEDS ORDERED: VANCOMYCIN 1.25 GM in IV D5W 250 ML IV SCH (20:00)
[2023-04-19 20:51] VITALS: BP 151/79; TEMP 98.4; O2SAT 96
[2023-04-20 06:23] LABS: CALCIUM, SERUM 8.2 mg/dL (8.5-10.1); CREATININE 1.6 mg/dL (0.6-1.3); POTASSIUM 4.6 mmol/L (3.5-5.1)
[2023-04-20] MEDS: BLOOD SUGAR DIAGNOSTIC 1 EACH STRIP IN SCH ×2 (07:13→12:00)
[2023-04-20 08:00] VITALS: BP 152/77; TEMP 98.2; O2SAT 95
[2023-04-20] MEDS: SENNOSIDES 8.6 MG TABLET PO SCH (09:00)
[2023-04-20] MEDS: POLYETHYLENE GLYCOL 3350 17 GM POWD.PACK PO SCH (09:00)
[2023-04-20] MEDS: PROSOURCE / PROSTAT (PYXIS) 30 ML UDC PO SCH ×2 (09:00→09:25)
[2023-04-20] MEDS: TAMSULOSIN 0.4 MG CAP.SR.24H PO SCH (09:18)
[2023-04-20] MEDS: FERROUS SULFATE (325 MG) 325 MG/TAB TABLET PO SCH (09:18)
[2023-04-20] MEDS: MULTIVIT W/MINERALS 1 TAB TABLET PO SCH (09:19)
[2023-04-20] MEDS: ASCORBIC ACID 500 MG TABLET PO SCH (09:19)
[2023-04-20] MEDS: LINAGLIPTIN 5 MG TABLET PO SCH (09:19)
[2023-04-20] MEDS: ENOXAPARIN SODIUM 40 MG/0.4 ML DISP.SYRIN SQ SCH (09:23)
[2023-04-20] MEDS ORDERED: DOXY100T2 PO (11:00)
[2023-04-20] MEDS ORDERED: CIPR-263 PO (11:00)
[2023-04-20] MEDS: THERAHONEY GEL 1.5 OZ TUBE TP SCH ×2 (11:02→11:04)
[2023-04-20] MEDS: CLOTRIMAZOLE 1% 15 GM TUBE TP SCH (11:04)
[2023-04-20 16:02] VITALS: BP 156/81; TEMP 97.9; O2SAT 97
[2023-04-21] MEDS ORDERED: ENOXAPARIN SODIUM 40 MG/0.4 ML DISP.SYRIN SQ SCH (09:00)
== END 2023-04-20 15:50 | DRG 364 ==
LOC: ER 23:59 → MED 04-13 14:00
PROVIDERS: ADMIT Nurse Practitioner Family; ATTEND Nurse Practitioner Acute Care
PROC: 0JB70ZX Excision of Back Subcutaneous Tissue and Fascia, Open Approach, Diagnostic (ICD-10-PCS; principal; 2023-04-14)
PROC: 0JB70ZZ Excision of Back Subcutaneous Tissue and Fascia, Open Approach (ICD-10-PCS; 2023-04-14)
PROC: 0KBW0ZZ Excision of Left Foot Muscle, Open Approach (ICD-10-PCS; 2023-04-15)
PROC: 0JB70ZX Excision of Back Subcutaneous Tissue and Fascia, Open Approach, Diagnostic (ICD-10-PCS; 2023-04-19)
DX: L03.116 Cellulitis of left lower limb (principal); N17.0 Acute kidney failure with tubular necrosis; E87.1 Hypo-osmolality and hyponatremia; N39.0 Urinary tract infection, site not specified; E83.51 Hypocalcemia; B96.89 Other specified bacterial agents as the cause of diseases classified elsewhere; C44.519 Basal cell carcinoma of skin of other part of trunk; E11.22 Type 2 diabetes mellitus with diabetic chronic kidney disease; I13.0 Hypertensive heart and chronic kidney disease with heart failure and stage 1 through stage 4 chronic kidney disease, or unspecified chronic kidney disease; I50.9 Heart failure, unspecified; L03.115 Cellulitis of right lower limb; L97.529 Non-pressure chronic ulcer of other part of left foot with unspecified severity; N18.30 Chronic kidney disease, stage 3 unspecified; E11.42 Type 2 diabetes mellitus with diabetic polyneuropathy; E11.51 Type 2 diabetes mellitus with diabetic peripheral angiopathy without gangrene; E11.621 Type 2 diabetes mellitus with foot ulcer; Z79.4 Long term (current) use of insulin; Z79.84 Long term (current) use of oral hypoglycemic drugs; Z79.899 Other long term (current) drug therapy; Z79.51 Long term (current) use of inhaled steroids; E78.5 Hyperlipidemia, unspecified; E66.9 Obesity, unspecified; Z68.39 Body mass index [BMI] 39.0-39.9, adult; Z98.890 Other specified postprocedural states; Z87.891 Personal history of nicotine dependence; N40.0 Benign prostatic hyperplasia without lower urinary tract symptoms; D50.9 Iron deficiency anemia, unspecified; E87.6 Hypokalemia; F32.A Depression, unspecified; F41.9 Anxiety disorder, unspecified; I87.8 Other specified disorders of veins; I89.0 Lymphedema, not elsewhere classified; R32 Unspecified urinary incontinence; Z98.62 Peripheral vascular angioplasty status; Z53.20 Procedure and treatment not carried out because of patient's decision for unspecified reasons; M89.8X9 Other specified disorders of bone, unspecified site; G40.909 Epilepsy, unspecified, not intractable, without status epilepticus; Z89.422 Acquired absence of other left toe(s); L97.919 Non-pressure chronic ulcer of unspecified part of right lower leg with unspecified severity
CPT/HCPCS: 36415; 71045-TC; 76770-TC; 80048-TC; 80053-TC; 80061-TC; 80202-TC; 81001; 82550-TC; 82570-TC; 82728-TC; 82962-TC; 83540-TC; 83735-TC; 83970; 84100-TC; 84155; 84165; 84300-TC; 84443-TC; 85025-TC; 85730-TC; 87040-TC; 87081-TC; 87086-TC; 93970-TC; A4223; A4349; A6253; A6403; A6407; G0378; J0692; J0696; J1650; J1815; J2270; J3370; J3490; J7030; J7050; J7060

== ENCOUNTER 2023-05-03 14:49 | Inpatient (IN) | payer OTHER ==
[~2023-05-03] VITALS: Ht 172.7 cm; Wt 130.7 kg
[~2023-05-03 14:49] MED LIST changes: -ACET-2605 PO; +ACET-868 PO; +ALBU2.5V38 IH; -ALBU8.5H8 IH; +AMIN30LI2 PO; +AMLO10TA4 PO; +ASCO-352 PO; -ATOR40TA PO; -BENA10TA74 PO; -BISA5TAB10 PO; +CADE40GE2 TP; +CIPR-263 PO; -DIVA-76 PO; -DIVA-78 PO; +DOXY100T2 PO; -DULO30CA52 PO; +FERR325T23 PO; -GABA-532 PO; +HYDR-4209 PO; +HYDR-4303 PO; +HYDR28.32 TP; -INSU100V36 SQ; -INSU100V7 SQ; -LACO100T2 PO; +LINA5TAB PO; +LOPE-195 PO; +LOSA25TA27 PO; +LOSA50TA39 PO; -Linezolid PO; +MAG30ORA PO; +MAGN400O6 PO; -METF-440 PO; +MULT-447 PO; -QUET25TA PO; -SENN-261 PO; +TAMS-12 PO
[2023-05-03] MEDS ORDERED: SIME80TA15 PO (15:37)
[2023-05-03] MEDS ORDERED: BISA10SU11 RC (15:37)
[2023-05-03] MEDS ORDERED: SODI480S2 TOP (15:37)
[2023-05-03] MEDS ORDERED: MENT71OI TP (15:37)
[2023-05-03] MEDS ORDERED: HONE15GE TP (15:37)
[2023-05-03] MEDS ORDERED: XEROFORM (15:37)
[2023-05-03] MEDS ORDERED: NA P133E RC (15:37)
[2023-05-03 15:39] LABS: BASOPHILS # (AUTO) 0.1 K/uL (0.0-0.2); BASOPHILS % (AUTO) 0.8 % (0.0-2.0); EOSINOPHILS # (AUTO) 0.9 K/uL (0.0-0.7); EOSINOPHILS % (AUTO) 8.7 % (0.0-6.0); HEMATOCRIT 36 % (39-51); HEMOGLOBIN 11.6 g/dL (13.5-17.5); LYMPHOCYTES # (AUTO) 2.2 K/uL (0.8-4.8); LYMPHOCYTES % (AUTO) 20.8 % (20.0-44.0); MEAN CORPUSCULAR HEMOGLOBIN 27 PG (26.0-33.0); MEAN CORPUSCULAR HGB CONC 33 g/dl (31.0-36.0); MEAN CORPUSCULAR VOLUME 83 fL (80-96); MONOCYTES # (AUTO) 0.8 K/uL (0.1-1.30); MONOCYTES % (AUTO) 7.4 % (2.0-12.0); NEUTROPHILS # (AUTO) 6.5 K/uL (1.8-8.9); NEUTROPHILS % (AUTO) 62.3 % (43.0-81.0); PLATELET COUNT (AUTO) 323 K/uL (150-450); RED BLOOD CELL COUNT(AUTO) 4.31 MIL/uL (4.5-6.0); RED CELL DISTRIBUTION WIDTH 18.8 % (11.5-15.0); WHITE BLOOD COUNT (AUTO) 10.5 K/uL (4.3-11.0)
[2023-05-03 15:47] LABS: CALCIUM, SERUM 8.5 mg/dL (8.5-10.1); POTASSIUM 4.1 mmol/L (3.5-5.1)
[2023-05-03 15:53] LABS: INR 1.11 (0.91-1.10); PARTIAL THROMBOPLASTIN TIME 30.4 SEC (24.3-34.3); PROTHROMBIN TIME 11.7 SECS (9.2-11.1)
[2023-05-03] MEDS ORDERED: ACETAMINOPHEN 325 MG TABLET PO PRN (17:00)
[2023-05-03] MEDS ORDERED: BISACODYL SUPP (10 MG) 10 MG/SUPP.RECT SUPP.RECT RC PRN (17:00)
[2023-05-03] MEDS ORDERED: ALBUTEROL FS 2.5 MG/3 ML VIAL.NEB NEB PRN (17:00)
[2023-05-03] MEDS ORDERED: FUROSEMIDE 40 MG TABLET PO SCH (17:00)
[2023-05-03] MEDS ORDERED: HYDROCODONE/APAP 5/325MG TABLET PO PRN (17:00)
[2023-05-03] MEDS: POLYETHYLENE GLYCOL 3350 17 GM POWD.PACK PO SCH (17:59)
[2023-05-03 18:27] VITALS: BP 139/78; TEMP 98.3; O2SAT 98
[2023-05-03 20:00] VITALS: BP 134/68; TEMP 97.9; O2SAT 97
[2023-05-04 04:00] VITALS: BP 140/85; TEMP 98.6; O2SAT 99
[2023-05-04 07:00] VITALS: BP 151/82; TEMP 98.2; O2SAT 100
[2023-05-04] MEDS ORDERED: INSULIN ASPART/LISPRO 100 UNIT/ML CARTRIDGE SQ PRN (07:00)
[2023-05-04] MEDS ORDERED: DEXTROSE 50%-WATER 50 ML DISP.SYRIN IV PRN (07:00)
[2023-05-04] MEDS: BLOOD SUGAR DIAGNOSTIC 1 EACH STRIP IN SCH ×4 (07:46→22:00)
[2023-05-04 08:00] VITALS: BP 151/82; TEMP 98.2; O2SAT 100
[2023-05-04] MEDS: FUROSEMIDE 100 MG/10 ML VIAL IV SCH ×3 (08:00→15:46)
[2023-05-04] MEDS: POLYETHYLENE GLYCOL 3350 17 GM POWD.PACK PO SCH ×2 (09:00→17:00)
[2023-05-04] MEDS ORDERED: FUROSEMIDE 80 MG TABLET PO ONE (09:00)
[2023-05-04] MEDS ORDERED: LOSARTAN POTASSIUM 50 MG TABLET PO SCH (09:00)
[2023-05-04] MEDS ORDERED: METOLAZONE 2.5 MG TABLET PO ONE (09:00)
[2023-05-04] MEDS ORDERED: FUROSEMIDE 40 MG TABLET PO ONE (10:00)
[2023-05-04] MEDS: ASCORBIC ACID 500 MG TABLET PO SCH (10:06)
[2023-05-04] MEDS: LINAGLIPTIN 5 MG TABLET PO SCH (10:06)
[2023-05-04] MEDS: FERROUS SULFATE (325 MG) 325 MG/TAB TABLET PO SCH (10:06)
[2023-05-04] MEDS: MULTIVIT W/MINERALS 1 TAB TABLET PO SCH (10:08)
[2023-05-04] MEDS: TAMSULOSIN 0.4 MG CAP.SR.24H PO SCH (10:08)
[2023-05-04] MEDS: AMLODIPINE BESYLATE 10 MG TABLET PO SCH (10:08)
[2023-05-04] MEDS: DAKINS QUARTER STRENGTH (0.125%) 480 ML BOTTLE TOP SCH (12:30)
[2023-05-04 13:02] LABS: BASOPHILS # (AUTO) 0.1 K/uL (0.0-0.2); BASOPHILS % (AUTO) 0.6 % (0.0-2.0); EOSINOPHILS # (AUTO) 1.3 K/uL (0.0-0.7); EOSINOPHILS % (AUTO) 12.8 % (0.0-6.0); HEMATOCRIT 36 % (39-51); HEMOGLOBIN 11.5 g/dL (13.5-17.5); LYMPHOCYTES # (AUTO) 2.7 K/uL (0.8-4.8); LYMPHOCYTES % (AUTO) 27.4 % (20.0-44.0); MEAN CORPUSCULAR HEMOGLOBIN 27 PG (26.0-33.0); MEAN CORPUSCULAR HGB CONC 32 g/dl (31.0-36.0); MEAN CORPUSCULAR VOLUME 83 fL (80-96); MONOCYTES # (AUTO) 0.8 K/uL (0.1-1.30); NEUTROPHILS # (AUTO) 5.1 K/uL (1.8-8.9); NEUTROPHILS % (AUTO) 51.2 % (43.0-81.0); PLATELET COUNT (AUTO) 295 K/uL (150-450); RED BLOOD CELL COUNT(AUTO) 4.29 MIL/uL (4.5-6.0); RED CELL DISTRIBUTION WIDTH 18.5 % (11.5-15.0); WHITE BLOOD COUNT (AUTO) 9.9 K/uL (4.3-11.0)
[2023-05-04 13:08] LABS: APPEARANCE,URINE CLEAR (CLEAR); BILIRUBIN,URINE NEGATIVE (NEGATIVE); BLOOD, URINE NEGATIVE Ery/uL (NEGATIVE); COLOR,URINE YELLOW (YELLOW); KETONES,URINE NEGATIVE (NEGATIVE); LEUKOCYTE ESTERASE ,URINE NEGATIVE (NEGATIVE); NITRITE, URINE NEGATIVE (NEGATIVE); PROTEIN,URINE 2+ mg/dl (NEGATIVE); UGLUCOSE NEGATIVE (NEGATIVE); UROBILINOGEN,URINE 0.2 EU/dL (0.2)
[2023-05-04 13:15] LABS: CREATININE, URINE 66.5 MG/DL (30.0-125.0); URINE TOTAL PROTEIN 212.7 mg/dL (0-11.9)
[2023-05-04 13:26] LABS: CALCIUM, SERUM 8.4 mg/dL (8.5-10.1); CREATININE 1.9 mg/dL (0.6-1.3); POTASSIUM 3.7 mmol/L (3.5-5.1)
[2023-05-04 13:36] LABS: ADD URINE CULTURE NO; BACTERIA,URINE None seen /HPF (None Seen); MUCUS,URINE Moderate /LPF (None Seen); RBC,URINE NONE SEEN /HPF (0-2); WBC,URINE NONE SEEN /HPF (0-3)
[2023-05-04 14:00] LABS: EOSINOPHIL,URINE Rare
[2023-05-04 16:00] VITALS: BP 140/68; TEMP 98.8; O2SAT 97
[2023-05-04] MEDS: CLOTRIMAZOLE 1% 15 GM TUBE TP SCH (17:09)
[2023-05-04 18:28] LABS: ABG BASE EXCESS 2.3 mmol/L; ABG OXYGEN SATURATION 96.1 % (92.0-98.5); ABG PCO2 40.1 mmHg (35.0-45.0); ABG PH 7.439 (7.350-7.450); ABG PO2 84.1 mmHg (75.0-100.0); ABG TOTAL HEMOGLOBIN 12.2 G/dL (13.5-18.0); AaDO2 17.6 mmHg; COHb 0.6 % (0.5-1.5); MetHb 0.2 % (0.0-1.5); O2Hb 95.3 % (94.0-97.0); SITE, ABG Right Radial; VENT MODE, BG 21%
[2023-05-04 20:00] VITALS: BP 134/70; TEMP 97.7; O2SAT 97
[2023-05-05 04:00] VITALS: BP 147/70; TEMP 98.2; O2SAT 100
[2023-05-05 05:54] LABS: BASOPHILS # (AUTO) 0.1 K/uL (0.0-0.2); BASOPHILS % (AUTO) 1.3 % (0.0-2.0); EOSINOPHILS # (AUTO) 1.3 K/uL (0.0-0.7); EOSINOPHILS % (AUTO) 12.2 % (0.0-6.0); HEMATOCRIT 33 % (39-51); LYMPHOCYTES # (AUTO) 2.4 K/uL (0.8-4.8); LYMPHOCYTES % (AUTO) 23.5 % (20.0-44.0); MEAN CORPUSCULAR HEMOGLOBIN 27 PG (26.0-33.0); MEAN CORPUSCULAR HGB CONC 33 g/dl (31.0-36.0); MEAN CORPUSCULAR VOLUME 83 fL (80-96); MONOCYTES # (AUTO) 0.8 K/uL (0.1-1.30); MONOCYTES % (AUTO) 7.7 % (2.0-12.0); NEUTROPHILS # (AUTO) 5.7 K/uL (1.8-8.9); NEUTROPHILS % (AUTO) 55.3 % (43.0-81.0); PLATELET COUNT (AUTO) 288 K/uL (150-450); RED BLOOD CELL COUNT(AUTO) 4.04 MIL/uL (4.5-6.0); RED CELL DISTRIBUTION WIDTH 18.4 % (11.5-15.0); WHITE BLOOD COUNT (AUTO) 10.3 K/uL (4.3-11.0)
[2023-05-05 06:19] LABS: ALBUMIN 2.2 g/dL (3.4-5.0); BILIRUBIN,TOTAL 0.4 mg/dL (0.2-1.0); CALCIUM, SERUM 8.6 mg/dL (8.5-10.1); CREATININE 1.9 mg/dL (0.6-1.3); MAGNESIUM 2.1 mg/dL (1.8-2.4); PHOSPHORUS 4.8 mg/dL (2.5-4.9); POTASSIUM 3.9 mmol/L (3.5-5.1)
[2023-05-05 08:00] VITALS: BP 128/72; TEMP 98.6; O2SAT 99
[2023-05-05] MEDS: BLOOD SUGAR DIAGNOSTIC 1 EACH STRIP IN SCH ×4 (08:28→21:16)
[2023-05-05] MEDS: ASCORBIC ACID 500 MG TABLET PO SCH (09:00)
[2023-05-05] MEDS: LINAGLIPTIN 5 MG TABLET PO SCH (09:00)
[2023-05-05] MEDS: POLYETHYLENE GLYCOL 3350 17 GM POWD.PACK PO SCH ×2 (09:00→17:00)
[2023-05-05] MEDS: AMLODIPINE BESYLATE 10 MG TABLET PO SCH (09:00)
[2023-05-05] MEDS: FERROUS SULFATE (325 MG) 325 MG/TAB TABLET PO SCH (09:00)
[2023-05-05] MEDS: MULTIVIT W/MINERALS 1 TAB TABLET PO SCH (09:00)
[2023-05-05] MEDS: TAMSULOSIN 0.4 MG CAP.SR.24H PO SCH (09:00)
[2023-05-05] MEDS: CLOTRIMAZOLE 1% 15 GM TUBE TP SCH ×2 (09:34→17:21)
[2023-05-05] MEDS: DAKINS QUARTER STRENGTH (0.125%) 480 ML BOTTLE TOP SCH (09:34)
[2023-05-05] MEDS: THERAHONEY GEL 1.5 OZ TUBE TP SCH (09:58)
[2023-05-05] MEDS ORDERED: LIDOCAINE 1% INJ 50 ML MDV IJ ONE (11:18)
[2023-05-05] MEDS ORDERED: BUPIVACAINE 0.25% 75 MG/30 ML VIAL ONE ×2 (11:18→11:48)
[2023-05-05] MEDS ORDERED: LIDOCAINE 1%-EPI 1:100,000 20 ML VIAL ONE ×2 (11:19→11:49)
[2023-05-05] MEDS ORDERED: ANESTHESIA TRAY IN PYXIS 1 EA TRAY MC ONE (15:25)
[2023-05-05 16:05] VITALS: BP 123/71; TEMP 98.2; O2SAT 98
[2023-05-05 20:00] VITALS: BP 135/64; TEMP 99.1; O2SAT 97
[2023-05-06 04:44] VITALS: BP 121/62; TEMP 98.3; O2SAT 97
[2023-05-06] MEDS: BLOOD SUGAR DIAGNOSTIC 1 EACH STRIP IN SCH ×3 (06:30→11:28)
[2023-05-06 07:07] LABS: PTH, INTACT 50 pg/mL (15-65); RAPID PLASMA REAGIN QUAL. Non Reactive (Non Reactive)
[2023-05-06] MEDS: POLYETHYLENE GLYCOL 3350 17 GM POWD.PACK PO SCH (08:41)
[2023-05-06] MEDS: FERROUS SULFATE (325 MG) 325 MG/TAB TABLET PO SCH (08:41)
[2023-05-06] MEDS: TAMSULOSIN 0.4 MG CAP.SR.24H PO SCH (08:42)
[2023-05-06] MEDS: ASCORBIC ACID 500 MG TABLET PO SCH (08:42)
[2023-05-06] MEDS: MULTIVIT W/MINERALS 1 TAB TABLET PO SCH (08:42)
[2023-05-06] MEDS: LINAGLIPTIN 5 MG TABLET PO SCH (08:43)
[2023-05-06 08:56] VITALS: BP 131/69
[2023-05-06] MEDS: AMLODIPINE BESYLATE 10 MG TABLET PO SCH (08:56)
[2023-05-06] MEDS: DAKINS QUARTER STRENGTH (0.125%) 480 ML BOTTLE TOP SCH (08:57)
[2023-05-06] MEDS: CLOTRIMAZOLE 1% 15 GM TUBE TP SCH (08:57)
[2023-05-06] MEDS: THERAHONEY GEL 1.5 OZ TUBE TP SCH (08:57)
[2023-05-06 09:07] LABS: *SPE A/G RATIO 0.5 (0.7-1.7); *SPE ALBUMIN 2.6 g/dL (2.9-4.4); *SPE ALPHA-1-GLOBULIN 0.2 g/dL (0.0-0.4); *SPE ALPHA-2-GLOBULIN 0.7 g/dL (0.4-1.0); *SPE BETA GLOBULIN 1.2 g/dL (0.7-1.3); *SPE GLOBULIN, TOTAL 4.8 g/dL (2.2-3.9); *SPE M-SPIKE Not Observed g/dL (Not Observed); *SPE PROTEIN TOTAL 7.4 g/dL (6.0-8.5); *SPEGAMMA GLOBULIN 2.6 g/dL (0.4-1.8)
== END 2023-05-06 12:42 | DRG 364 ==
LOC: ER 14:52 → MEDSG1 17:13
PROVIDERS: ADMIT Nurse Practitioner Family; ATTEND Nurse Practitioner Family
PROC: 0HB6XZX Excision of Back Skin, External Approach, Diagnostic (ICD-10-PCS; principal; 2023-05-05)
PROC: 0JX70ZZ Transfer Back Subcutaneous Tissue and Fascia, Open Approach (ICD-10-PCS; 2023-05-05)
PROC: 0JB70ZZ Excision of Back Subcutaneous Tissue and Fascia, Open Approach (ICD-10-PCS; 2023-05-05)
DX: C44.619 Basal cell carcinoma of skin of left upper limb, including shoulder (principal); L97.529 Non-pressure chronic ulcer of other part of left foot with unspecified severity; N17.9 Acute kidney failure, unspecified; J90 Pleural effusion, not elsewhere classified; I50.43 Acute on chronic combined systolic (congestive) and diastolic (congestive) heart failure; D63.8 Anemia in other chronic diseases classified elsewhere; L97.929 Non-pressure chronic ulcer of unspecified part of left lower leg with unspecified severity; E11.22 Type 2 diabetes mellitus with diabetic chronic kidney disease; I13.0 Hypertensive heart and chronic kidney disease with heart failure and stage 1 through stage 4 chronic kidney disease, or unspecified chronic kidney disease; E11.42 Type 2 diabetes mellitus with diabetic polyneuropathy; E11.621 Type 2 diabetes mellitus with foot ulcer; E66.01 Morbid (severe) obesity due to excess calories; E78.5 Hyperlipidemia, unspecified; G47.33 Obstructive sleep apnea (adult) (pediatric); I48.91 Unspecified atrial fibrillation; Z79.4 Long term (current) use of insulin; Z87.891 Personal history of nicotine dependence; Z79.84 Long term (current) use of oral hypoglycemic drugs; M89.8X9 Other specified disorders of bone, unspecified site; N18.32 Chronic kidney disease, stage 3b; I87.8 Other specified disorders of veins; I87.2 Venous insufficiency (chronic) (peripheral); E11.51 Type 2 diabetes mellitus with diabetic peripheral angiopathy without gangrene; Z68.41 Body mass index [BMI] 40.0-44.9, adult; S21.202A Unspecified open wound of left back wall of thorax without penetration into thoracic cavity, initial encounter; X58.XXXA Exposure to other specified factors, initial encounter; Y93.9 Activity, unspecified; Y92.129 Unspecified place in nursing home as the place of occurrence of the external cause; N40.0 Benign prostatic hyperplasia without lower urinary tract symptoms
CPT/HCPCS: 36415; 36600; 71045-TC; 76770-TC; 80048-TC; 80053-TC; 81001; 82550-TC; 82570-TC; 82803-TC; 82962-TC; 83735-TC; 83970; 84100-TC; 84155; 84165; 84300-TC; 85025-TC; 85730-TC; 86592; 86593; 86850-TC; 87081-TC; 88305-TC; 93307-TC; A6209; A6253; A6402; A6403; G0378; J1815; J3490